=== PATIENT | male | born 1960 | race Caucasian/White ===

== ENCOUNTER 2017-01-25 18:17 | Inpatient (IN) | payer OTHER ==
[~2017-01-25] VITALS: Ht 185.4 cm; Wt 113.9 kg
[2017-01-25] VITALS: BP 108/62
[~2017-01-25 18:17] MED LIST: AMLO10TA2 PO; BENA40TA2 PO; FLUV50TA10 PO; GABA-534 PO; LORA1TAB82 PO; METF500T4 PO; PALI234D IM
--- NOTE | 2017-01-25 18:25 | NUR ---
PT BIB SELF, C/O HAVING ANXIETY ATTACK. STATES HE USUALLY TAKES ATIVAN, BUT HAS NOT TODAY. PATIENT REMAINS A/OX 4, BREATHING EVEN AND UNLABORED ON ROOM AIR. NO SOB. VITALS STABLE. SAFETY AND COMFORT MEASURES IN PLACE, AWAITING MD ORDERS.
--- NOTE | 2017-01-25 18:30 | NUR ---
PT CAME IN FOR ANXIETY ATTACK TODAY, TAKES ATIVAN BUT STATES DID NOT TAKE IT. NAD NOTED. VSS. SEEN BY MD FOR EVAL. SAFETY AND COMFORT MEASURES PROVIDED. WILL MONITOR.
[2017-01-25] MEDS ORDERED: LORAZEPAM 1 MG TABLET ONE (18:39)
--- NOTE | 2017-01-25 18:48 | NUR ---
ATIVAN 1MG PO ADMINSITERED.
[2017-01-25 18:52] LABS: BASOPHILS # (AUTO) 0.3 /CMM (0.0-0.2); BASOPHILS % (AUTO) 2.7 % (0.0-2.0); EOSINOPHILS # (AUTO) 0.1 /CMM (0.0-0.7); EOSINOPHILS % (AUTO) 1.2 % (0.0-6.0); HEMATOCRIT 38 % (39-51); HEMOGLOBIN 12.9 g/dL (13.5-17.5); LYMPHOCYTES # (AUTO) 1.7 /CMM (0.8-4.8); LYMPHOCYTES % (AUTO) 16.6 % (20.0-44.0); MEAN CORPUSCULAR HEMOGLOBIN 28 PG (26.0-33.0); MEAN CORPUSCULAR HGB CONC 34 g/dl (31.0-36.0); MEAN CORPUSCULAR VOLUME 81 fL (80-96); MONOCYTES # (AUTO) 0.7 /CMM (0.1-1.30); MONOCYTES % (AUTO) 6.3 % (2.0-12.0); NEUTROPHILS # (AUTO) 7.6 /CMM (1.8-8.9); NEUTROPHILS % (AUTO) 73.2 % (43.0-81.0); PLATELET COUNT (AUTO) 336 /CMM (150-450); RDW COEFFICIENT OF VARIATION 12.1 (11.5-15.0); RED BLOOD CELL COUNT(AUTO) 4.69 MIL/uL (4.5-6.0); WHITE BLOOD COUNT (AUTO) 10.4 K/uL (4.3-11.0)
[2017-01-25 18:59] LABS: CALCIUM, SERUM 8.9 mg/dL (8.5-10.1); CREATININE 0.9 mg/dL (0.6-1.3)
[2017-01-25] MEDS ORDERED: LORAZEPAM 1 MG TABLET PO ONE (19:00)
[2017-01-25 19:03] LABS: POTASSIUM 3.4 mmol/L (3.5-5.1)
--- NOTE | 2017-01-25 19:27 | NUR ---
NEW IV STARTED LAC, 18 GAUGE.
--- NOTE | 2017-01-25 19:31 | NUR ---
Assumed care of pt. pt sitting up in bed, talking on phone, speaking full & complete sentences w/ no acute distress noted. Awaiting admission.
--- NOTE | 2017-01-25 19:37 | NUR ---
DR.RUTHERFORD TEODORO DYNO TECHNICIAN
--- NOTE | 2017-01-25 19:40 | NUR ---
CALLED NURSING SUP. FOR TELE BED
--- NOTE | 2017-01-25 20:29 | NUR ---
Report given to RUEL Abad for pt admission to [facility] rm [id number].
[2017-01-25] MEDS ORDERED: ZOLP10TA2 PO (20:30)
[2017-01-25] MEDS ORDERED: CARI350T PO (20:30)
[2017-01-25 21:00] VITALS: BP_SYST 119; BP_SYST 122; BP_DIAS 69; BP_DIAS 74
[2017-01-25] MEDS ORDERED: DEXTROSE 50%-WATER 50 ML DISP.SYRIN IV PRN (21:00)
[2017-01-25] MEDS ORDERED: MAG HYDROX/AL HYDROX/SIMETH 30 ML UDC PO PRN (21:00)
[2017-01-25] MEDS ORDERED: ACETAMINOPHEN 325 MG TABLET PO PRN (21:00)
[2017-01-25] MEDS ORDERED: Z GUARD REMEDY 2 OZ OINT TP PRN (21:00)
[2017-01-25] MEDS ORDERED: *INSULIN REGULAR(HUMULIN R)HUM 100 UNIT/ML VIAL SQ PRN (21:00)
[2017-01-25] MEDS ORDERED: INSULIN REGULAR, HUMAN 100 UNIT/ML 3 ML VIAL SQ PRN (21:00)
[2017-01-25] MEDS ORDERED: MAGNESIUM HYDROXIDE 30 ML UDC PO PRN (21:00)
[2017-01-25] MEDS ORDERED: HYDROCODONE/APAP 5/325MG 1 EACH TABLET PO PRN (21:00)
[2017-01-25] MEDS ORDERED: ONDANSETRON HCL/PF 4 MG/2 ML VIAL IVP PRN (21:00)
--- NOTE | 2017-01-25 21:00 | NUR ---
MS RN NOTES RECEIVED PT FROM THE ER INSTABLE CONDITION. PT IS A/O X 4, VERBALLY RESPONSIVE. NO DISTRESS, NO SOB NOTED. RESPIRATION IS EVEN AND UNLABORED. IV SITE ON LAC INTACT AND PATENT, NO S/S OF INFILTRATION NOTED. NO S/S OF HYPO/ HYPERGLYCEMIA NOTED. PT DENIES ANY PAIN OR DISCOMFORT AT THIS TIME. ALL NEEDS ATTENDED AND MET. KEPT COMFORTABLE. BODY ASSESSMENT DONE. PT REFUSED BODY CHECK FROM WAIST DOWN, RISK AND BENEFITS EXPLAINED, PT STILL REFUSED X 3. CALL LIGHT WITHIN REACH. WILL CONTINUE TO MONITOR.
[2017-01-25] MEDS ORDERED: IV SET PRIMARY PUMP SET 1 EA INFUS.SET MC ONE (21:13)
[2017-01-25] MEDS: IV NS 0.9% 1,000 ML IV PRN (21:17)
--- NOTE | 2017-01-25 22:20 | NUR ---
PT IS REQUESTING FOR HIS SOMA, AMBIEN AND ATIVAN MEDICATION , PLACED A CALL TO DR. LOBO AND DISCUSSED RE: PT'S CONCERN, WITH NEW ORDER NOTED AND CARRIED OUT.
[2017-01-25] MEDS ORDERED: CARISOPRODOL 350 MG TABLET ONE (22:49)
[2017-01-25] MEDS: ENOXAPARIN SODIUM 40 MG/0.4 ML DISP.SYRIN SQ SCH (22:55)
[2017-01-25] MEDS: BLOOD SUGAR DIAGNOSTIC 1 EACH STRIP VI SCH (22:59)
[2017-01-25] MEDS ORDERED: CARISOPRODOL 350 MG TABLET PO SCH (23:00)
[2017-01-25] MEDS ORDERED: CARISOPRODOL 350 MG TABLET PO ONE (23:00)
[2017-01-25] MEDS ORDERED: LORAZEPAM 1 MG TABLET PO PRN (23:00)
[2017-01-26] MEDS ORDERED: ZOLPIDEM TARTRATE 10 MG TABLET PO ONE
[2017-01-26] MEDS ORDERED: ZOLPIDEM TARTRATE 10 MG TABLET ONE (01:18)
[2017-01-26 04:00] VITALS: BP 115/63
[2017-01-26] MEDS: BLOOD SUGAR DIAGNOSTIC 1 EACH STRIP VI SCH ×4 (06:02→22:03)
[2017-01-26 06:36] LABS: BASOPHILS % (AUTO) 0.6 % (0.0-2.0); EOSINOPHILS # (AUTO) 0.2 /CMM (0.0-0.7); EOSINOPHILS % (AUTO) 2.6 % (0.0-6.0); HEMATOCRIT 37 % (39-51); HEMOGLOBIN 12.7 g/dL (13.5-17.5); LYMPHOCYTES # (AUTO) 1.3 /CMM (0.8-4.8); LYMPHOCYTES % (AUTO) 22.4 % (20.0-44.0); MEAN CORPUSCULAR HEMOGLOBIN 28 PG (26.0-33.0); MEAN CORPUSCULAR HGB CONC 35 g/dl (31.0-36.0); MEAN CORPUSCULAR VOLUME 81 fL (80-96); MONOCYTES # (AUTO) 0.5 /CMM (0.1-1.30); MONOCYTES % (AUTO) 8.3 % (2.0-12.0); NEUTROPHILS # (AUTO) 3.9 /CMM (1.8-8.9); NEUTROPHILS % (AUTO) 66.1 % (43.0-81.0); PLATELET COUNT (AUTO) 306 /CMM (150-450); RDW COEFFICIENT OF VARIATION 13.4 (11.5-15.0); RED BLOOD CELL COUNT(AUTO) 4.54 MIL/uL (4.5-6.0); WHITE BLOOD COUNT (AUTO) 5.9 K/uL (4.3-11.0)
[2017-01-26 06:59] LABS: CALCIUM, SERUM 8.7 mg/dL (8.5-10.1); CREATININE 0.8 mg/dL (0.6-1.3); MAGNESIUM 1.9 mg/dL (1.8-2.4); PHOSPHORUS 4.2 mg/dL (2.5-4.9)
--- NOTE | 2017-01-26 07:16 | NUR ---
MS RN NOTES PT IS RESTING AT THSI TIME, AROUSES EASILY, PT IS A/O X 4, VERBALLY RESPONSIVE. NO DISTRESS, NO SOB NOTED. RESPIRATION IS EVEN AND UNLABORED. IV SITE ON LAC INTACT AND PATENT, NO S/S OF INFILTRATION NOTED. NO S/S OF HYPO/ HYPERGLYCEMIA NOTED. PT DENIES ANY PAIN OR DISCOMFORT AT THIS TIME. ALL NEEDS ATTENDED AND MET. KEPT COMFORTABLE. PT IS AMBULATORY AND CONTINENT OF URINE AND BM. CALL LIGHT WITHIN REACH. WILL ENDORSE TO NEXT SHIFT FOR RICKY.
--- NOTE | 2017-01-26 07:53 | NUR ---
RN MS NOTES PATIENT IN BED ALERT AND ORIENTED, NO COMPLAIN OF PAIN OR DISCOMFORT NOTED, NO DISTRESS NOTEDA, IVF INFUSING AND TOLERATING WELL, ALL NEEDS ATTENDED AND MET, SAFETY MEASURES IN PLACED, CALL LIGHT WITHIN REACH, WILL CONTINUE TO MONITOR.
[2017-01-26 08:00] VITALS: BP 132/76
[2017-01-26] MEDS: LORAZEPAM 1 MG TABLET PO SCH ×3 (08:21→17:46)
[2017-01-26] MEDS: PANTOPRAZOLE 40 MG TABLET.DR PO SCH (08:21)
[2017-01-26] MEDS: BENAZEPRIL HCL 20 MG TABLET PO SCH (08:22)
[2017-01-26] MEDS: GABAPENTIN 300 MG CAPSULE PO SCH ×3 (08:22→17:46)
[2017-01-26] MEDS: AMLODIPINE BESYLATE 10 MG TABLET PO SCH (08:22)
--- NOTE | 2017-01-26 10:56 | NUR ---
OFFSET ASSISTANT PRESS OPERATOR NOTES PER DR. JALEN YAP TO DC TELEMETRY.
[2017-01-26] MEDS: IV NS 0.9% 1,000 ML IV PRN (11:35)
--- NOTE | 2017-01-26 13:30 | NUR ---
RN MS NOTES INFORMED DR. SCHAEFER PATIENT REFUSED INSULIN WITH BS OF 196, PATIENT IS REQUESTING FOR METFORMIN AND JANUVIA, RECEIVED ORDER FROM DR. SCHAEFER TO GIVE JANUVIA, ORDER NOTED ANDC ARRIED OUT.
[2017-01-26] MEDS ORDERED: LINAGLIPTIN 5 MG TABLET PO SCH ×2 (14:00→18:00)
[2017-01-26] MEDS ORDERED: SITAGLIPTIN PHOSPHATE 50 MG TABLET PO SCH (14:00)
--- NOTE | 2017-01-26 15:24 | NUR ---
RN MS NOTES PATIENT OFFERED, TRADJENTA AN ALTERNATIVE FOR JANUVIA, DISCUSSED SIDE EFFECTS, PATIENT REQUESTED FOR A BLOOD SUGAR CHECK, BS SHOWS 128, PATIENT REFUSED TRADJENTA AND REQUESTED TO TAKE FOR DINNER, DEPENDING ON BLOOD SUGAR, EXPLAINED RISKS AND BENEFITS, STILL REFUSED, ALL NEEDS ATTENDED, CALL LIGHT WITHIN REACH, WILL CONTINUE TO MONITOR,
[2017-01-26 16:00] VITALS: BP 116/62
[2017-01-26] MEDS ORDERED: ZOLPIDEM TARTRATE 10 MG TABLET PO SCH (18:00)
[2017-01-26] MEDS ORDERED: CARISOPRODOL 350 MG TABLET PO SCH (18:00)
--- NOTE | 2017-01-26 19:05 | NUR ---
RN MS NOTES PATIENT IN BED, ALERT AND ORIENTED, NO SOB/ DISTRESS NOTED, NO SIGNIFICANT CHANGE THIS SHIFT, STILL CONTINUES ON IV FLUIDS FOR HYDRATION AND TOLERATING WELL, CALL LIGHT WITHIN REACH, SAFETY MEASURES IN PLACED, WILL ENDORSE TO CARBON FURNACE OPERATOR HELPER FOR RICKY.
--- NOTE | 2017-01-26 19:20 | NUR ---
MS RN NOTES RECEIVED PT IN BED, AWAKE, A/O X4 . VERBALLY RESPONSIVE. NO DISTRESS, NO SOB NOTED. RESPIRATION IS EVEN AND UNLABORED. IV SITE ON LEFT AC INTACT AND PATENT, IVF INFUSING WELL. DENIES ANY PAIN OR DISCOMFORT AT THIS TIME. PT IS AMBULATORY. CONTINENT OF BOWEL AND URINE. ALL NEEDS ATTENDED AND MET. KEPT COMFORTABLE. CALL LIGHT WITHIN REACH. WILL CONTINUE TO MONITOR.
[2017-01-26 20:11] VITALS: BP 128/75
[2017-01-26 22:00] VITALS: BP 128/75
[2017-01-26] MEDS: ENOXAPARIN SODIUM 40 MG/0.4 ML DISP.SYRIN SQ SCH (22:02)
[2017-01-27] MEDS: IV NS 0.9% 1,000 ML IV PRN (02:35)
[2017-01-27] MEDS: BLOOD SUGAR DIAGNOSTIC 1 EACH STRIP VI SCH ×2 (06:07→12:00)
--- NOTE | 2017-01-27 06:33 | NUR ---
MS RN NOTES PT IN BED, AWAKE, A/O X4 . VERBALLY RESPONSIVE. WATCHING TV AT THIS TIME. NO DISTRESS, NO SOB NOTED. RESPIRATION IS EVEN AND UNLABORED. IV SITE ON LEFT AC INTACT AND PATENT, IVF INFUSING WELL. DENIES ANY PAIN OR DISCOMFORT AT THIS TIME. PT IS AMBULATORY. CONTINENT OF BOWEL AND BLADDER. NO DYSURIA NOTED. ALL NEEDS ATTENDED AND MET. KEPT COMFORTABLE. CALL LIGHT WITHIN REACH. WILL ENDORSE TO NEXT SHIFT FOR RICKY.
[2017-01-27 07:43] LABS: CALCIUM, SERUM 8.8 mg/dL (8.5-10.1); CREATININE 0.8 mg/dL (0.6-1.3); MAGNESIUM 2.2 mg/dL (1.8-2.4); POTASSIUM 3.9 mmol/L (3.5-5.1)
[2017-01-27 08:00] VITALS: BP 142/82
--- NOTE | 2017-01-27 08:00 | NUR ---
m/s manager audit: initial assessment received pt in bed awake, a/ox4, ambulatory. pt wants to go home today. no c/o pain or any discomfort. awaiting for pmd to make rounds. instructed to call for assistance. will monitor.
[2017-01-27 08:39] VITALS: BP 142/82
[2017-01-27] MEDS: LORAZEPAM 1 MG TABLET PO SCH (08:39)
[2017-01-27] MEDS: GABAPENTIN 300 MG CAPSULE PO SCH (08:39)
[2017-01-27] MEDS: BENAZEPRIL HCL 20 MG TABLET PO SCH (08:39)
[2017-01-27] MEDS: PANTOPRAZOLE 40 MG TABLET.DR PO SCH (08:39)
[2017-01-27] MEDS: AMLODIPINE BESYLATE 10 MG TABLET PO SCH (08:39)
--- NOTE | 2017-01-27 10:48 | NUR ---
m/s printed circuit boards stripper etcher: notes received order from dr. griffith to d'c pt home. order acknowledged. cn and pt made aware.
--- NOTE | 2017-01-27 10:52 | NUR ---
WOUND CARE CONSULT: PATIENT PRESENTS WITH RIGHT MIDDLE FINGER DRY SCAB PRESENT ON ADMISSION. OPEN TO AIR. PATIENT NOTED TO BE AMBULATORY AND CONTINENT. DEANA NOTED TO BE 22. DISCUSSED WITH NURSING STAFF. IN AGREEMENT WITH PLAN OF CARE. Addendum: 01/27/17 at 1054 by THEA HERRERA RN Amended: Links added.
--- NOTE | 2017-01-27 12:20 | NUR ---
m/brigid engle: notes dr. griffith spoke to pt and discharge instructions given and also instructed pt on discharge instructions and verbalized understanding. h/l removed with tip intact with no swelling, no redness, and no bleeding noted. Addendum: 01/27/17 at 1324 by EMELI SALCEDON pt refused photo to his right middle finger scab, stated, "no, they already taken on admission."
--- NOTE | 2017-01-27 12:25 | NUR ---
m/s chiller tender: discharged discharged home via taxi in stable condition with all d'c papers.
== END 2017-01-27 12:25 | disposition home or self-care (01) | DRG 424 ==
LOC: ER 18:19 → TELE 20:24 → MED 01-26 10:30
PROVIDERS: ADMIT Internal Medicine; ATTEND Internal Medicine
DX: E22.2 Syndrome of inappropriate secretion of antidiuretic hormone (principal); E44.1 Mild protein-calorie malnutrition; I10 Essential (primary) hypertension; E11.9 Type 2 diabetes mellitus without complications; F20.0 Paranoid schizophrenia; Z79.84 Long term (current) use of oral hypoglycemic drugs; Z87.891 Personal history of nicotine dependence; E66.9 Obesity, unspecified; E78.5 Hyperlipidemia, unspecified; R53.1 Weakness; Z68.33 Body mass index [BMI] 33.0-33.9, adult; F41.9 Anxiety disorder, unspecified
CPT/HCPCS: 36415; 71010-TC; 80048-TC; 82962-TC; 83735-TC; 84100-TC; 85025-TC; 87081-TC; A4606; J1650; J1815; J7030; Z7610

== ENCOUNTER 2017-12-15 12:29 | Emergency (ER) | payer OTHER ==
[~2017-12-15] VITALS: Ht 182.9 cm; Wt 74.8 kg
[~2017-12-15 12:29] MED LIST changes: -AMLO10TA2 PO; +AMLO10TA6 PO; -BENA40TA2 PO; +BENA40TA8 PO; +CARI350T PO; +LORA-259 PO; -LORA1TAB82 PO; +METF-440 PO; -METF500T4 PO; +ZOLP10TA2 PO
--- NOTE | 2017-12-15 12:35 | NUR ---
PT BIB [facility] WITH A C/O UNWITTNESSED SYNCOPAL EPISODE. PT HAS A SM LAC AND BUMP ABOVE THE RT EYE. PT IS AA&O X2. PT APPEARS ALTERED.
--- NOTE | 2017-12-15 12:35 | NUR ---
PT DOES NOT REMEMBER HOW HE FELL.
--- NOTE | 2017-12-15 12:46 | NUR ---
DR. BARRAGAN D/C'D SALINE LOCK ORDER. TAKE OFF WORKER IS AT THE BEDSIDE.
--- NOTE | 2017-12-15 12:46 | NUR ---
DR. BARRAGAN IS AT THE BEDSIDE EVALUATING THE PT.
[2017-12-15 13:07] LABS: BASOPHILS # (AUTO) 0.1 /CMM (0.0-0.2); BASOPHILS % (AUTO) 1.4 % (0.0-2.0); EOSINOPHILS % (AUTO) 0.7 % (0.0-6.0); HEMATOCRIT 40 % (39-51); HEMOGLOBIN 13.9 g/dL (13.5-17.5); LYMPHOCYTES % (AUTO) 11.5 % (20.0-44.0); MEAN CORPUSCULAR HGB CONC 34 g/dl (31.0-36.0); MEAN CORPUSCULAR VOLUME 81 fL (80-96); MONOCYTES # (AUTO) 0.5 /CMM (0.1-1.30); MONOCYTES % (AUTO) 5.3 % (2.0-12.0); NEUTROPHILS # (AUTO) 7.2 /CMM (1.8-8.9); NEUTROPHILS % (AUTO) 81.1 % (43.0-81.0); PLATELET COUNT (AUTO) 312 /CMM (150-450); RDW COEFFICIENT OF VARIATION 12.3 (11.5-15.0); RED BLOOD CELL COUNT(AUTO) 4.99 MIL/uL (4.5-6.0); WHITE BLOOD COUNT (AUTO) 8.9 K/uL (4.3-11.0)
--- NOTE | 2017-12-15 13:07 | NUR ---
XRAY DONE AT THE BEDSIDE.
[2017-12-15 13:16] LABS: CALCIUM, SERUM 9.2 mg/dL (8.5-10.1); CARBON DIOXIDE 28 mmol/L (21-32); CHLORIDE 98 mmol/L (98-107); GLUCOSE 143 mg/dL (74-106); POTASSIUM 4.5 mmol/L (3.5-5.1); SODIUM SERUM 132 mmol/L (136-145); UREA NITROGEN, BLOOD 11 mg/dL (7-18)
--- NOTE | 2017-12-15 13:19 | NUR ---
PT LEFT FOR CT VIA GURNEY.
[2017-12-15 13:20] LABS: INR 0.93 (0.85-1.15)
[2017-12-15 13:21] LABS: ALANINE AMINOTRANSFERASE 27 U/L (12-78); ALBUMIN 4.2 g/dL (3.4-5.0); ALKALINE PHOSPHATASE 67 U/L (46-116); ASPARTATE AMINOTRANSFERASE 18 U/L (15-37); BILIRUBIN,DIRECT 0.1 mg/dL (0.0-0.2); BILIRUBIN,TOTAL 0.8 mg/dL (0.2-1.0); TOTAL PROTEIN, SERUM 7.6 g/dL (6.4-8.2)
[2017-12-15 13:26] LABS: TROPONIN I < 0.017 ng/mL (0.00-0.056)
--- NOTE | 2017-12-15 13:29 | NUR ---
PT RETURNED FROM CT VIA [facility].
--- NOTE | 2017-12-15 13:55 | NUR ---
Patient discharged to home in stable condition. Written and verbal after care instructions given. Patient verbalizes understanding of instruction.
[2017-12-15 14:28] VITALS: BP 132/83
== END 2017-12-15 13:55 | disposition home or self-care (01) ==
LOC: ER 12:32
DX: S01.81XA Laceration without foreign body of other part of head, initial encounter (principal); G93.40 Encephalopathy, unspecified; R55 Syncope and collapse; E11.9 Type 2 diabetes mellitus without complications; F20.0 Paranoid schizophrenia; I10 Essential (primary) hypertension; W01.0XXA Fall on same level from slipping, tripping and stumbling without subsequent striking against object, initial encounter; Y93.01 Activity, walking, marching and hiking; Y92.89 Other specified places as the place of occurrence of the external cause; Y99.8 Other external cause status
CPT/HCPCS: 12011; 36415; 70450; 71045; 80048; 80076; 82962; 84484; 85025; 85730; 93005; 99285; A4606; Z7610

== ENCOUNTER 2018-02-05 11:17 | Emergency (ER) | payer OTHER ==
[~2018-02-05] VITALS: Ht 182.9 cm; Wt 111.1 kg
[~2018-02-05 11:17] MED LIST changes: +AMLO10TA2 PO; -AMLO10TA6 PO; +BENA40TA2 PO; -BENA40TA8 PO; -METF-440 PO; +METF500T6 PO
--- NOTE | 2018-02-05 11:25 | NUR ---
PT AMBULATORY TO ER BED 13. HERE FOR FOUL SMELLING URINE AND OCCATIONAL PAIN. ALSO C/O ANXIETY SINCE LAST NIGHT. VSS. AWAITING MD MATHIAS.
--- NOTE | 2018-02-05 11:32 | NUR ---
DR OBRIEN AT BEDSIDE FOR EVAL.
[2018-02-05] MEDS ORDERED: LORAZEPAM 1 MG TABLET ONE (11:40)
[2018-02-05 11:46] LABS: LYMPHOCYTES # (AUTO) 0.9 /CMM (0.8-4.8); MEAN CORPUSCULAR HEMOGLOBIN 29 PG (26.0-33.0); MEAN CORPUSCULAR HGB CONC 36 g/dl (31.0-36.0); MONOCYTES # (AUTO) 0.5 /CMM (0.1-1.30); NEUTROPHILS % (AUTO) 77.8 % (43.0-81.0)
[2018-02-05 11:47] LABS: BASOPHILS % (AUTO) 0.3 % (0.0-2.0); EOSINOPHILS % (AUTO) 1.1 % (0.0-6.0); HEMATOCRIT 36 % (39-51); HEMOGLOBIN 12.8 g/dL (13.5-17.5); LYMPHOCYTES % (AUTO) 13.2 % (20.0-44.0); MEAN CORPUSCULAR VOLUME 82 fL (80-96); MONOCYTES % (AUTO) 7.6 % (2.0-12.0); PLATELET COUNT (AUTO) 255 /CMM (150-450); RDW COEFFICIENT OF VARIATION 11.9 (11.5-15.0); RED BLOOD CELL COUNT(AUTO) 4.43 MIL/uL (4.5-6.0); WHITE BLOOD COUNT (AUTO) 6.5 K/uL (4.3-11.0)
[2018-02-05 11:48] LABS: APPEARANCE,URINE Clear (CLEAR); BILIRUBIN,URINE Negative (NEGATIVE); BLOOD, URINE Trace-intact Ery/uL (NEGATIVE); COLOR,URINE Light yellow (YELLOW); KETONES,URINE Negative (NEGATIVE); LEUKOCYTE ESTERASE ,URINE Negative (NEGATIVE); NITRITE, URINE Negative (NEGATIVE); PROTEIN,URINE Negative (NEGATIVE); UGLUCOSE Negative (NEGATIVE); UROBILINOGEN,URINE 0.2 EU/dL (0.2)
[2018-02-05 11:55] LABS: BACTERIA,URINE None seen /HPF (None Seen); SQUAMOUS EPITHELIAL CELL,UR Few /HPF (None Seen); WBC,URINE 0-2 /HPF (0-3)
[2018-02-05 11:57] LABS: CALCIUM, SERUM 8.9 mg/dL (8.5-10.1); CREATININE 0.8 mg/dL (0.6-1.3); POTASSIUM 3.8 mmol/L (3.5-5.1)
[2018-02-05] MEDS ORDERED: LORAZEPAM 0.5 MG TABLET PO ONE (12:00)
[2018-02-05 12:10] VITALS: BP 143/75
--- NOTE | 2018-02-05 12:10 | NUR ---
PT. VERBALIZED UNDERSTANDING OF AFTERCARE INSTRUCTIONS.Patient discharged to home in stable condition. Written and verbal after care instructions given. Patient verbalizes understanding of instruction.
== END 2018-02-05 12:11 | disposition home or self-care (01) ==
LOC: ER 11:18
DX: E87.79 Other fluid overload (principal); R63.1 Polydipsia; F41.8 Other specified anxiety disorders; I10 Essential (primary) hypertension; E11.9 Type 2 diabetes mellitus without complications; F20.0 Paranoid schizophrenia
CPT/HCPCS: 36415; 80048; 81001; 85025; 99284; A4606; Z7610; 81000-TC

== ENCOUNTER 2019-07-22 11:22 | Emergency (ER) | payer OTHER ==
[~2019-07-22] VITALS: Ht 172.7 cm; Wt 109.3 kg
[~2019-07-22 11:22] MED LIST changes: -AMLO10TA2 PO; +AMLO10TA7 PO; -BENA40TA2 PO; +BENA40TA8 PO; +METF-440 PO; -METF500T6 PO
--- NOTE | 2019-07-22 11:30 | NUR ---
frankieSylvia, from the grocery store, took 6 tabs of ambien 10 mg, denies SI/HI, pt to bed 11, pt on monitor, vss, nad noted, pending md garcia
[2019-07-22] MEDS ORDERED: IV NS 0.9% 1,000 ML BAG IV ONE (12:00)
[2019-07-22 12:05] LABS: BASOPHILS % (AUTO) 0.4 % (0.0-2.0); EOSINOPHILS % (AUTO) 0.4 % (0.0-6.0); HEMATOCRIT 43 % (39-51); HEMOGLOBIN 14.4 g/dL (13.5-17.5); LYMPHOCYTES # (AUTO) 1.5 /CMM (0.8-4.8); LYMPHOCYTES % (AUTO) 17.6 % (20.0-44.0); MEAN CORPUSCULAR HGB CONC 34 g/dl (31.0-36.0); MEAN CORPUSCULAR VOLUME 85 fL (80-96); MONOCYTES # (AUTO) 0.6 /CMM (0.1-1.30); MONOCYTES % (AUTO) 6.7 % (2.0-12.0); NEUTROPHILS # (AUTO) 6.2 /CMM (1.8-8.9); NEUTROPHILS % (AUTO) 74.9 % (43.0-81.0); PLATELET COUNT (AUTO) 289 /CMM (150-450); RED BLOOD CELL COUNT(AUTO) 5.02 MIL/uL (4.5-6.0); WHITE BLOOD COUNT (AUTO) 8.3 K/uL (4.3-11.0)
[2019-07-22 12:09] LABS: APPEARANCE,URINE Clear (CLEAR); BILIRUBIN,URINE Negative (NEGATIVE); BLOOD, URINE Trace-intact Ery/uL (NEGATIVE); COLOR,URINE Yellow (YELLOW); KETONES,URINE Negative (NEGATIVE); LEUKOCYTE ESTERASE ,URINE Negative (NEGATIVE); NITRITE, URINE Negative (NEGATIVE); PROTEIN,URINE Negative (NEGATIVE); UGLUCOSE Negative (NEGATIVE); UROBILINOGEN,URINE 0.2 EU/dL (0.2)
[2019-07-22 12:19] LABS: CREATININE 0.8 mg/dL (0.6-1.3); POTASSIUM 3.9 mmol/L (3.5-5.1)
[2019-07-22 12:24] LABS: ALBUMIN 3.9 g/dL (3.4-5.0); BACTERIA,URINE None seen /HPF (None Seen); BILIRUBIN,DIRECT 0.2 mg/dL (0.0-0.2); BILIRUBIN,TOTAL 0.8 mg/dL (0.2-1.0); RBC,URINE 0-2 /HPF (0-2); SQUAMOUS EPITHELIAL CELL,UR Few /HPF (None Seen); TOTAL PROTEIN, SERUM 7.2 g/dL (6.4-8.2); WBC,URINE 0-2 /HPF (0-3)
[2019-07-22 12:26] LABS: SALICYLATE 0.4 mg/dL (2.8-20.0)
--- NOTE | 2019-07-22 13:58 | NUR ---
CALLED INDEPENDENT CONTRACTOR CECILIA FOR EVAL
[2019-07-22] MEDS ORDERED: OLANZAPINE 10 MG VIAL IM ONE (14:00)
--- NOTE | 2019-07-22 14:04 | NUR ---
CECILIA MACHO OVER 1 HOUR
--- NOTE | 2019-07-22 14:31 | NUR ---
called salma for update; she will be unable to pick him up.
--- NOTE | 2019-07-22 15:33 | NUR ---
CECILIA ETA 20 MINUTES
--- NOTE | 2019-07-22 16:48 | NUR ---
report given to rashida horvath hilton
--- NOTE | 2019-07-22 17:21 | NUR ---
Patient discharged to home in stable condition. Written and verbal after care instructions given. Patient verbalizes understanding of instruction. AMBULATORY STEADY GAIT. DISCHARGED TO [facility].
[2019-07-22 17:24] VITALS: BP 161/75
== END 2019-07-22 17:24 | disposition home or self-care (01) ==
LOC: ER 11:24
DX: T42.6X1A Poisoning by other antiepileptic and sedative-hypnotic drugs, accidental (unintentional), initial encounter (principal); I10 Essential (primary) hypertension; E11.9 Type 2 diabetes mellitus without complications; F41.9 Anxiety disorder, unspecified; F20.0 Paranoid schizophrenia; Z79.899 Other long term (current) drug therapy; Z79.84 Long term (current) use of oral hypoglycemic drugs; Y92.89 Other specified places as the place of occurrence of the external cause
CPT/HCPCS: 36415; 80048; 80076; 80305; 80307; 80329; 81001; 85025; 93005; 99284; G0480; J7030; 81000-TC

== ENCOUNTER 2019-09-30 20:22 | Emergency (ER) | payer OTHER ==
[~2019-09-30] VITALS: Ht 185.4 cm; Wt 65.3 kg
--- NOTE | 2019-09-30 20:30 | NUR ---
PT BIB [facility] WITH A C/O ETOH. PT BECAME TIRED OF WALKING AND LAID ON THE GROUND. PT CALLED 911. PT APPEARS TO BE INTOXICATED AND IS SAYING: "I WANT TO ". PT DOES NOT WANT TO KILL HIMSELF AND DOES NOT HAVE A PLAN. SITTER IS AT THE BEDSIDE.
[2019-09-30 21:37] LABS: BASOPHILS # (AUTO) 0.1 /CMM (0.0-0.2); BASOPHILS % (AUTO) 0.6 % (0.0-2.0); EOSINOPHILS % (AUTO) 0.7 % (0.0-6.0); HEMATOCRIT 44 % (39-51); HEMOGLOBIN 14.9 g/dL (13.5-17.5); LYMPHOCYTES # (AUTO) 1.3 /CMM (0.8-4.8); LYMPHOCYTES % (AUTO) 14.1 % (20.0-44.0); MEAN CORPUSCULAR HGB CONC 34 g/dl (31.0-36.0); MEAN CORPUSCULAR VOLUME 86 fL (80-96); MONOCYTES # (AUTO) 0.4 /CMM (0.1-1.30); MONOCYTES % (AUTO) 4.6 % (2.0-12.0); NEUTROPHILS # (AUTO) 7.4 /CMM (1.8-8.9); PLATELET COUNT (AUTO) 253 /CMM (150-450); RED BLOOD CELL COUNT(AUTO) 5.13 MIL/uL (4.5-6.0); WHITE BLOOD COUNT (AUTO) 9.3 K/uL (4.3-11.0)
--- NOTE | 2019-09-30 21:48 | NUR ---
PT TRIED TO GIVE A URINE SAMPLE, BUT DID NOT HAVE TO URINATE AT THIS TIME.
[2019-09-30 21:53] LABS: CALCIUM, SERUM 8.7 mg/dL (8.5-10.1); CARBON DIOXIDE 20 mmol/L (21-32); CHLORIDE 98 mmol/L (98-107); GLUCOSE 135 mg/dL (74-106); POTASSIUM 3.6 mmol/L (3.5-5.1); SODIUM SERUM 135 mmol/L (136-145); UREA NITROGEN, BLOOD 8 mg/dL (7-18)
[2019-09-30 21:59] LABS: ALANINE AMINOTRANSFERASE 16 U/L (12-78); ALCOHOL, BLOOD 241 mg/dL (0-0); ALKALINE PHOSPHATASE 95 U/L (46-116); ASPARTATE AMINOTRANSFERASE 15 U/L (15-37); BILIRUBIN,DIRECT 0.1 mg/dL (0.0-0.2); BILIRUBIN,TOTAL 0.5 mg/dL (0.2-1.0); TOTAL PROTEIN, SERUM 7.2 g/dL (6.4-8.2)
[2019-09-30 22:00] LABS: SALICYLATE < 2.8 mg/dL (2.8-20.0)
--- NOTE | 2019-09-30 22:15 | NUR ---
PT APPEARS TO BE RESTING COMFORTABLY WITH NO S/S OF PAIN OR DISTRESS.
--- NOTE | 2019-10-01 00:39 | NUR ---
PT APPEARS TO BE RESTING COMFORTABLY. NO S/S OF PAIN OR DISTRESS. PT STATED THAT HE DOES NOT WANT TO KILL HIMSELF OR ANYONE ELSE, BUT HE WISHES GOD WOULD END THINGS FOR HIM.
--- NOTE | 2019-10-01 00:42 | NUR ---
PT IS STILL NOT ABLE TO GIVE A URINE SAMPLE AT THIS TIME.
--- NOTE | 2019-10-01 01:46 | NUR ---
PT APPEARS TO BE SLEEPING SOUNDLY WITH NO S/S OF PAIN OR DISTRESS. VSS.
--- NOTE | 2019-10-01 02:45 | NUR ---
PT IS SLEEPING SOUNDLY WITH NO S/S OF PAIN OR DISTRESS. PT IS ON THE MONITOR AND CONTINUOUS PULSE OX.
--- NOTE | 2019-10-01 03:11 | NUR ---
REPORT GIVEN TO RUEL LARIOS/COOPER FOR RICKY.
--- NOTE | 2019-10-01 05:31 | NUR ---
Patient discharged to home in stable condition. Written and verbal after care instructions given. Patient verbalizes understanding of instruction. Pt denies being homeless. Pt ambulatory with steady gait, VSS.
[2019-10-01 05:32] VITALS: BP 118/74
== END 2019-10-01 05:33 | disposition home or self-care (01) ==
LOC: ER 20:22
DX: F10.129 Alcohol abuse with intoxication, unspecified (principal); R45.851 Suicidal ideations; I10 Essential (primary) hypertension; E11.9 Type 2 diabetes mellitus without complications; F20.0 Paranoid schizophrenia; F41.9 Anxiety disorder, unspecified; Y90.8 Blood alcohol level of 240 mg/100 ml or more; Z79.899 Other long term (current) drug therapy
CPT/HCPCS: 36415; 80048; 80076; 80307; 80329; 85025; 99283; G0480

== ENCOUNTER 2021-12-25 14:53 | Emergency (ER) | payer OTHER ==
[~2021-12-25] VITALS: Ht 182.9 cm; Wt 93.4 kg
[~2021-12-25 14:53] MED LIST changes: +AMLO-213 PO; -AMLO10TA7 PO
--- NOTE | 2021-12-25 15:05 | NUR ---
PT [id number] C/O BACK PAIN S/P FALL -KO. +ETOH. PT AAOX3, VSS. RR EVEN & UNLABORED. AWAITING EVAL BY ERMD. WILL CONT TO MONITOR.
[2021-12-25 17:00] VITALS: BP 100/60
--- NOTE | 2021-12-25 17:00 | NUR ---
Sleeping soundly Respirations even and unlabored in NO obvious distress
--- NOTE | 2021-12-25 18:24 | NUR ---
Pt got up ambulated - to the bathroom and eloped. Unable to convince pt to stay states "im leaving" Gait even and Steady Dr Shepherd notified
== END 2021-12-25 18:39 | disposition home or self-care (01) ==
LOC: ER 14:59
DX: S21.209A Unspecified open wound of unspecified back wall of thorax without penetration into thoracic cavity, initial encounter (principal); F10.129 Alcohol abuse with intoxication, unspecified; I10 Essential (primary) hypertension; E11.9 Type 2 diabetes mellitus without complications; F41.9 Anxiety disorder, unspecified; F20.0 Paranoid schizophrenia; Z79.899 Other long term (current) drug therapy; W22.8XXA Striking against or struck by other objects, initial encounter; Y93.89 Activity, other specified; Y92.89 Other specified places as the place of occurrence of the external cause; Y99.8 Other external cause status; Y90.9 Presence of alcohol in blood, level not specified
CPT/HCPCS: 70450-TC; 72125-TC; 72128-TC; 72131-TC

== ENCOUNTER 2021-12-26 16:09 | Emergency (ER) | payer OTHER ==
[~2021-12-26] VITALS: Ht 180.3 cm; Wt 99.8 kg
[2021-12-26] MEDS ORDERED: IV NS 0.9% 1,000 ML BAG IV ONE (16:30)
--- NOTE | 2021-12-26 16:30 | NUR ---
BIBRA60 + ETOH. PT WAS SEEN HERE YEST FOR SAME REASON. PLACED ON BED, DROWSY-AWAKE RESPONDING TO VERBAL STIMULI. SEEN AND EXAMINED BY
--- NOTE | 2021-12-26 16:35 | NUR ---
BLOOD DRAWN AND SENT TO LAB
[2021-12-26 16:44] LABS: BASOPHILS # (AUTO) 0.1 K/uL (0.0-0.2); BASOPHILS % (AUTO) 0.6 % (0.0-2.0); EOSINOPHILS % (AUTO) 0.7 % (0.0-6.0); HEMATOCRIT 44 % (39-51); HEMOGLOBIN 15.2 g/dL (13.5-17.5); LYMPHOCYTES # (AUTO) 1.8 K/uL (0.8-4.8); LYMPHOCYTES % (AUTO) 21.2 % (20.0-44.0); MEAN CORPUSCULAR HGB CONC 35 g/dl (31.0-36.0); MEAN CORPUSCULAR VOLUME 84 fL (80-96); MONOCYTES # (AUTO) 0.7 K/uL (0.1-1.30); MONOCYTES % (AUTO) 7.9 % (2.0-12.0); NEUTROPHILS # (AUTO) 5.8 K/uL (1.8-8.9); NEUTROPHILS % (AUTO) 69.6 % (43.0-81.0); PLATELET COUNT (AUTO) 211 K/uL (150-450); RED BLOOD CELL COUNT(AUTO) 5.16 MIL/uL (4.5-6.0); WHITE BLOOD COUNT (AUTO) 8.4 K/uL (4.3-11.0)
--- NOTE | 2021-12-26 16:45 | NUR ---
X-RAY TECH AT BED SIDE
[2021-12-26 17:43] LABS: ALBUMIN 3.6 g/dL (3.4-5.0); BILIRUBIN,DIRECT 0.4 mg/dL (0.0-0.2); BILIRUBIN,TOTAL 1.3 mg/dL (0.2-1.0); CALCIUM, SERUM 8.4 mg/dL (8.5-10.1); CREATININE 0.9 mg/dL (0.6-1.3); POTASSIUM 3.2 mmol/L (3.5-5.1); TOTAL PROTEIN, SERUM 6.9 g/dL (6.4-8.2)
--- NOTE | 2021-12-26 18:45 | NUR ---
[facility]
--- NOTE | 2021-12-26 20:37 | NUR ---
IV removed. Catheter intact and site benign. Pressure and 4x4 applied to site. No bleeding noted.Patient discharged to home in stable condition. Written and verbal after care instructions given. Patient verbalizes understanding of instruction.
[2021-12-26 20:49] VITALS: BP 141/77
== END 2021-12-26 20:45 | disposition home or self-care (01) ==
LOC: ER 16:14
DX: M25.561 Pain in right knee (principal); E87.1 Hypo-osmolality and hyponatremia; F10.129 Alcohol abuse with intoxication, unspecified; F41.9 Anxiety disorder, unspecified; I10 Essential (primary) hypertension; E11.9 Type 2 diabetes mellitus without complications; F20.0 Paranoid schizophrenia; Z79.899 Other long term (current) drug therapy; Y90.9 Presence of alcohol in blood, level not specified
CPT/HCPCS: 36415; 70450; 73560; 80048; 80076; 83690; 85025; 85730; 96360; 99285; J7030

== ENCOUNTER 2022-01-01 20:35 | Emergency (ER) | payer OTHER ==
[~2022-01-01] VITALS: Ht 180.3 cm; Wt 99.8 kg
[2022-01-01 21:08] VITALS: BP 149/87
--- NOTE | 2022-01-01 21:23 | NUR ---
PT SEEN BY DR. BOYER
--- NOTE | 2022-01-01 21:44 | NUR ---
Patient discharged to home in stable condition. Written and verbal after care instructions given. Patient verbalizes understanding of instruction. Pt ambulatory with a steady gait
== END 2022-01-01 21:46 | disposition home or self-care (01) ==
LOC: ER 20:49
DX: T23.011A Burn of unspecified degree of right thumb (nail), initial encounter (principal); I10 Essential (primary) hypertension; E11.9 Type 2 diabetes mellitus without complications; F41.9 Anxiety disorder, unspecified; F20.0 Paranoid schizophrenia; Y92.89 Other specified places as the place of occurrence of the external cause

== ENCOUNTER 2022-02-09 12:52 | Emergency (ER) | payer OTHER ==
[~2022-02-09] VITALS: Ht 180.3 cm; Wt 99.3 kg
--- NOTE | 2022-02-09 12:58 | NUR ---
[address]IB [facility] [address], DIFFICULTY WALKING X 2 YRS, GETTING WORSE ADMIT TO DRINKING ALCOHOL TODAY. PT IS A&OX3. ATTACHED TO MONITOR, VITALS ARE WITHIN NORMAL LIMITS. AWAITING MD MATHIAS.
[2022-02-09 14:43] VITALS: BP 116/68
[2022-02-09] MEDS ORDERED: Thiamine 100 MG in IV D5W 50 ML IV SCH (15:00)
[2022-02-09] MEDS ORDERED: IV LR 1000 ML 1,000 ML IV ONE (15:00)
[2022-02-09 15:05] LABS: BASOPHILS % (AUTO) 0.7 % (0.0-2.0); EOSINOPHILS % (AUTO) 0.5 % (0.0-6.0); HEMATOCRIT 40 % (39-51); HEMOGLOBIN 13.9 g/dL (13.5-17.5); LYMPHOCYTES # (AUTO) 1.3 K/uL (0.8-4.8); LYMPHOCYTES % (AUTO) 19.3 % (20.0-44.0); MEAN CORPUSCULAR HGB CONC 34 g/dl (31.0-36.0); MEAN CORPUSCULAR VOLUME 87 fL (80-96); MONOCYTES # (AUTO) 0.3 K/uL (0.1-1.30); MONOCYTES % (AUTO) 5.2 % (2.0-12.0); NEUTROPHILS # (AUTO) 4.8 K/uL (1.8-8.9); NEUTROPHILS % (AUTO) 74.3 % (43.0-81.0); PLATELET COUNT (AUTO) 185 K/uL (150-450); RED BLOOD CELL COUNT(AUTO) 4.65 MIL/uL (4.5-6.0); WHITE BLOOD COUNT (AUTO) 6.5 K/uL (4.3-11.0)
[2022-02-09 15:19] LABS: CREATININE 0.7 mg/dL (0.6-1.3)
--- NOTE | 2022-02-09 16:31 | NUR ---
PATIENT PULLED OUT IV PERIPHERAL LINE. Pressure and 4x4 applied to site. No bleeding noted.
--- NOTE | 2022-02-09 16:38 | NUR ---
Patient eloped from facility. ER MD notified.
[2022-02-09 17:23] LABS: POTASSIUM 4.1 mmol/L (3.5-5.1)
--- NOTE | 2022-02-15 11:32 | NUR ---
ON 02/09/22 1,000ML OF LACTATED RINGER FLUID GIVEN TO PT ON L AC 20G. FLUID STARTED AT 1507 AND ENDED AT 1607. PT TOLERATED WELL.
--- NOTE | 2022-02-16 15:35 | NUR ---
on 02/27/22 pt recived thiamine 100mg in d5w 50ml at 102ml. drip was started at 1522 and ended at 1551. pt tolerated drip well.
== END 2022-02-09 16:38 | disposition left against medical advice (07) ==
LOC: ER 12:55
DX: R26.81 Unsteadiness on feet (principal); F10.129 Alcohol abuse with intoxication, unspecified; I10 Essential (primary) hypertension; E11.9 Type 2 diabetes mellitus without complications; F41.9 Anxiety disorder, unspecified; F20.0 Paranoid schizophrenia; Z60.2 Problems related to living alone; Z79.899 Other long term (current) drug therapy; Y90.6 Blood alcohol level of 120-199 mg/100 ml
CPT/HCPCS: 99284; 96365; 85025; 80048; 83735; 36415; 80320; J7060; J7120; J3411; G0480

== ENCOUNTER 2022-02-28 14:36 | Emergency (ER) | payer OTHER ==
[~2022-02-28] VITALS: Ht 182.9 cm; Wt 90.3 kg
--- NOTE | 2022-02-28 14:45 | NUR ---
[id number] C/O GENERALIZED WEAKNESS. PT IS A&OX3, DROWSY. ATTACHED TO MONITOR, NO RESP DISTRESS NOTED. AWAITING MD MATHIAS.
[2022-02-28 15:56] LABS: BASOPHILS % (AUTO) 0.4 % (0.0-2.0); HEMATOCRIT 39 % (39-51); HEMOGLOBIN 13.6 g/dL (13.5-17.5); LYMPHOCYTES # (AUTO) 1.6 K/uL (0.8-4.8); LYMPHOCYTES % (AUTO) 27.2 % (20.0-44.0); MEAN CORPUSCULAR HGB CONC 35 g/dl (31.0-36.0); MEAN CORPUSCULAR VOLUME 87 fL (80-96); MONOCYTES # (AUTO) 0.6 K/uL (0.1-1.30); MONOCYTES % (AUTO) 9.9 % (2.0-12.0); NEUTROPHILS # (AUTO) 3.7 K/uL (1.8-8.9); NEUTROPHILS % (AUTO) 61.5 % (43.0-81.0); PLATELET COUNT (AUTO) 195 K/uL (150-450); RED BLOOD CELL COUNT(AUTO) 4.52 MIL/uL (4.5-6.0)
[2022-02-28] MEDS ORDERED: Thiamine 100 MG in IV D5W 50 ML IV SCH (16:00)
[2022-02-28] MEDS ORDERED: IV LR 1000 ML 1,000 ML IV ONE (16:00)
--- NOTE | 2022-02-28 16:11 | NUR ---
PT REFUSED FLUID TO BE ADMINISTERED, LEFT AGAINST MEDICAL ADVICE AND STATED THAT HE NEEDS TO GO PAY HIS PHONE BILL. PT LEFT THE FACILITY WALKING.
--- NOTE | 2022-02-28 16:11 | NUR ---
IV removed. Catheter intact and site benign. Pressure and 4x4 applied to site. No bleeding noted.
[2022-02-28 16:15] VITALS: BP 100/63
[2022-02-28 16:19] LABS: CALCIUM, SERUM 8.5 mg/dL (8.5-10.1); CREATININE 0.8 mg/dL (0.6-1.3); POTASSIUM 3.3 mmol/L (3.5-5.1)
== END 2022-02-28 16:16 | disposition left against medical advice (07) ==
LOC: ER 14:38
DX: R26.81 Unsteadiness on feet (principal); F10.129 Alcohol abuse with intoxication, unspecified; I10 Essential (primary) hypertension; E11.9 Type 2 diabetes mellitus without complications; F41.9 Anxiety disorder, unspecified; F20.0 Paranoid schizophrenia; F17.200 Nicotine dependence, unspecified, uncomplicated; Z60.2 Problems related to living alone; Z79.899 Other long term (current) drug therapy; Z79.84 Long term (current) use of oral hypoglycemic drugs; Y90.6 Blood alcohol level of 120-199 mg/100 ml
CPT/HCPCS: 99283; 85025; 80048; 83735; 36415; 80320; J3490; J7060; J7120; J3411; G0480

== ENCOUNTER 2022-03-08 22:17 | Emergency (ER) | payer OTHER ==
[~2022-03-08] VITALS: Ht 180.3 cm; Wt 99.3 kg
--- NOTE | 2022-03-08 22:39 | NUR ---
[id number] C/O ETOH FROM [employer] . PT SLEEPING AND DROWSY; AROUSABLE TO PAIN. A/OX1 AT THIS TIME. TOLERATING R/A WELL WITH NO RESP DISTRESS OR SOB. CONNECTED PT TO POX AND MONITOR. SAFETY MEASURES IN PLACE.
--- NOTE | 2022-03-08 22:58 | NUR ---
DR. JUDITH PRINGLE AT PT'S BEDSIDE FOR EVAL
--- NOTE | 2022-03-08 23:00 | NUR ---
URINE COLLECTED AND SENT TO LAB
--- NOTE | 2022-03-08 23:12 | NUR ---
PATIENT RELATIONS COORDINATOR AT PT'S BEDSIDE
--- NOTE | 2022-03-08 23:15 | NUR ---
YARD TRUCK DRIVER AT PT'S BEDSIDE
[2022-03-08 23:39] LABS: BASOPHILS % (AUTO) 0.5 % (0.0-2.0); HEMATOCRIT 42 % (39-51); HEMOGLOBIN 14.2 g/dL (13.5-17.5); LYMPHOCYTES # (AUTO) 1.9 K/uL (0.8-4.8); LYMPHOCYTES % (AUTO) 29.1 % (20.0-44.0); MEAN CORPUSCULAR HGB CONC 34 g/dl (31.0-36.0); MEAN CORPUSCULAR VOLUME 88 fL (80-96); MONOCYTES # (AUTO) 0.7 K/uL (0.1-1.30); MONOCYTES % (AUTO) 10.8 % (2.0-12.0); NEUTROPHILS # (AUTO) 3.9 K/uL (1.8-8.9); NEUTROPHILS % (AUTO) 58.6 % (43.0-81.0); PLATELET COUNT (AUTO) 267 K/uL (150-450); RED BLOOD CELL COUNT(AUTO) 4.74 MIL/uL (4.5-6.0); WHITE BLOOD COUNT (AUTO) 6.6 K/uL (4.3-11.0)
[2022-03-08 23:44] LABS: CALCIUM, SERUM 8.1 mg/dL (8.5-10.1); CREATININE 0.9 mg/dL (0.6-1.3)
[2022-03-08 23:52] LABS: ALBUMIN 3.4 g/dL (3.4-5.0); BILIRUBIN,DIRECT 0.2 mg/dL (0.0-0.2); BILIRUBIN,TOTAL 0.5 mg/dL (0.2-1.0); TOTAL PROTEIN, SERUM 6.6 g/dL (6.4-8.2)
[2022-03-09] MEDS: IV NS 0.9% 1,000 ML BAG IV ONE (00:48)
--- NOTE | 2022-03-09 00:50 | NUR ---
ESTABLISHES IV RFA #20G S/L IVF NS 2L BEING ADMINISTERED
[2022-03-09] MEDS ORDERED: ACET-2605 PO (03:51)
[2022-03-09] MEDS ORDERED: POTASSIUM CHLORIDE 20 MEQ TAB.PRT.SR PO ONE (03:57)
[2022-03-09] MEDS: POTASSIUM CHLORIDE 20 MEQ TAB.PRT.SR PO ONE (04:01)
--- NOTE | 2022-03-09 04:17 | NUR ---
PT IS A, OX4. AMBULATORY WITH STEADY GAITS TO THE BATHROOM. PO INTAKE TOLERATED WELL. DENIED SI/HI. REPORTED FEELING WELL AND WILLING TO LEAVE. MD MADE AWARE. CLEAR FOR DISCHARGE PER MD
[2022-03-09 04:38] VITALS: BP 130/77
--- NOTE | 2022-03-09 04:38 | NUR ---
Patient discharged to home in stable condition. Written and verbal after care instructions given. Patient verbalizes understanding of instruction.
== END 2022-03-09 04:39 | disposition home or self-care (01) ==
LOC: ER 22:18
DX: M77.32 Calcaneal spur, left foot (principal); M77.31 Calcaneal spur, right foot; F10.129 Alcohol abuse with intoxication, unspecified; I10 Essential (primary) hypertension; E11.9 Type 2 diabetes mellitus without complications; F41.9 Anxiety disorder, unspecified; F20.0 Paranoid schizophrenia; F17.200 Nicotine dependence, unspecified, uncomplicated; Z60.2 Problems related to living alone; Z79.899 Other long term (current) drug therapy; Y90.8 Blood alcohol level of 240 mg/100 ml or more
CPT/HCPCS: 99284; 73630 ×2; 85025; 80048; 80076; 36415; 80320; 80307; 96360; J7030 ×2; G0480

== ENCOUNTER 2022-03-15 06:59 | Emergency (ER) | payer OTHER ==
[~2022-03-15] VITALS: Ht 180.3 cm; Wt 99.3 kg
[~2022-03-15 06:59] MED LIST changes: +ACET-2605 PO
--- NOTE | 2022-03-15 07:05 | NUR ---
[address] C/O DIARRHEA AND RIGHT LEG PAIN X 3 DAYS . "DRANK BAD WATER". TOLERATING R/A WELL WITH NO RESP DISTRESS. SAFETY MEASURES IN PLACE.
--- NOTE | 2022-03-15 07:21 | NUR ---
LAB AT BEDSIDE
[2022-03-15 07:38] LABS: BASOPHILS % (AUTO) 0.1 % (0.0-2.0); HEMATOCRIT 44 % (39-51); HEMOGLOBIN 14.9 g/dL (13.5-17.5); LYMPHOCYTES # (AUTO) 0.6 K/uL (0.8-4.8); LYMPHOCYTES % (AUTO) 4.6 % (20.0-44.0); MEAN CORPUSCULAR HGB CONC 34 g/dl (31.0-36.0); MEAN CORPUSCULAR VOLUME 88 fL (80-96); MONOCYTES # (AUTO) 0.7 K/uL (0.1-1.30); MONOCYTES % (AUTO) 5.7 % (2.0-12.0); NEUTROPHILS # (AUTO) 10.7 K/uL (1.8-8.9); NEUTROPHILS % (AUTO) 89.6 % (43.0-81.0); PLATELET COUNT (AUTO) 144 K/uL (150-450); RED BLOOD CELL COUNT(AUTO) 4.94 MIL/uL (4.5-6.0); WHITE BLOOD COUNT (AUTO) 11.9 K/uL (4.3-11.0)
[2022-03-15 07:50] LABS: CALCIUM, SERUM 8.3 mg/dL (8.5-10.1); CREATININE 0.9 mg/dL (0.6-1.3)
[2022-03-15 07:58] LABS: ALBUMIN 3.5 g/dL (3.4-5.0); BILIRUBIN,DIRECT 0.7 mg/dL (0.0-0.2); BILIRUBIN,TOTAL 2.3 mg/dL (0.2-1.0); TOTAL PROTEIN, SERUM 6.9 g/dL (6.4-8.2)
[2022-03-15] MEDS ORDERED: POTASSIUM CHLORIDE 20 MEQ TAB.PRT.SR PO ONE ×2 (08:05→08:30)
--- NOTE | 2022-03-15 08:23 | NUR ---
Patient discharged to home in stable condition. Written and verbal after care instructions given. Patient verbalizes understanding of instruction.
[2022-03-15 08:24] VITALS: BP 139/76
== END 2022-03-15 08:24 | disposition home or self-care (01) ==
LOC: ER 07:03
DX: R19.7 Diarrhea, unspecified (principal); E87.6 Hypokalemia; F20.9 Schizophrenia, unspecified; E80.6 Other disorders of bilirubin metabolism; I10 Essential (primary) hypertension; E11.9 Type 2 diabetes mellitus without complications; F41.9 Anxiety disorder, unspecified; F17.200 Nicotine dependence, unspecified, uncomplicated; Z60.2 Problems related to living alone; Z79.899 Other long term (current) drug therapy; Z79.84 Long term (current) use of oral hypoglycemic drugs
CPT/HCPCS: 36415; 80048-TC; 80076-TC; 85025-TC

== ENCOUNTER 2022-07-14 19:52 | Emergency (ER) | payer OTHER ==
[~2022-07-14] VITALS: Ht 185.4 cm; Wt 90.7 kg
[2022-07-14 21:03] VITALS: BP 140/71
[2022-07-14] MEDS ORDERED: DOXY-226 PO (21:13)
== END 2022-07-14 22:00 | disposition home or self-care (01) ==
LOC: EDBD 19:55 → ER 19:55
DX: L03.114 Cellulitis of left upper limb (principal); I10 Essential (primary) hypertension; E11.9 Type 2 diabetes mellitus without complications; F41.9 Anxiety disorder, unspecified; F20.0 Paranoid schizophrenia; Z60.2 Problems related to living alone; F17.200 Nicotine dependence, unspecified, uncomplicated; Z79.84 Long term (current) use of oral hypoglycemic drugs

== ENCOUNTER 2022-07-26 21:28 | Emergency (ER) | payer OTHER ==
[~2022-07-26] VITALS: Ht 175.3 cm; Wt 77.1 kg
[~2022-07-26 21:28] MED LIST changes: +DOXY-226 PO
[2022-07-26 22:20] VITALS: BP 148/88
[2022-07-26] MEDS ORDERED: GABAPENTIN 300 MG CAPSULE ONE (22:35)
[2022-07-26] MEDS ORDERED: GABA600T12 PO (22:36)
--- NOTE | 2022-07-26 22:38 | NUR ---
Patient discharged to home in stable condition. Written and verbal after care instructions given. Patient verbalizes understanding of instruction.
[2022-07-26] MEDS ORDERED: GABAPENTIN 100 MG CAPSULE PO ONE (23:00)
== END 2022-07-26 22:38 | disposition home or self-care (01) ==
LOC: ER 21:31
DX: M79.2 Neuralgia and neuritis, unspecified (principal); I10 Essential (primary) hypertension; E11.40 Type 2 diabetes mellitus with diabetic neuropathy, unspecified; F41.9 Anxiety disorder, unspecified; F17.200 Nicotine dependence, unspecified, uncomplicated; Z79.899 Other long term (current) drug therapy; Z59.00 Homelessness unspecified; Z79.84 Long term (current) use of oral hypoglycemic drugs

== ENCOUNTER 2022-07-27 17:00 | Emergency (ER) | payer OTHER ==
[~2022-07-27] VITALS: Ht 172.7 cm; Wt 81.6 kg
[~2022-07-27 17:00] MED LIST changes: +GABA600T12 PO
--- NOTE | 2022-07-27 19:02 | NUR ---
TO ER 13, NO APPARENT CHANGE IN CONDITION
[2022-07-27 20:00] VITALS: BP 130/70
--- NOTE | 2022-07-27 21:06 | NUR ---
Patient discharged to home in stable condition. Written and verbal after care instructions given. Patient verbalizes understanding of instruction.
== END 2022-07-27 21:07 | disposition home or self-care (01) ==
LOC: ER 17:06
DX: M25.562 Pain in left knee (principal); M25.561 Pain in right knee; I10 Essential (primary) hypertension; E11.9 Type 2 diabetes mellitus without complications; F20.9 Schizophrenia, unspecified; F41.9 Anxiety disorder, unspecified; Z60.2 Problems related to living alone; Z79.899 Other long term (current) drug therapy
CPT/HCPCS: 73564-TC; 82962-TC

== ENCOUNTER 2022-07-30 15:30 | Emergency (ER) | payer OTHER ==
[~2022-07-30] VITALS: Ht 182.9 cm; Wt 96.6 kg
--- NOTE | 2022-07-30 16:00 | NUR ---
BIBRA78 C/O HEADACHE S/P WITNESSED GLF. PT DENIES LOC. HEAD LAC ON HEAD. PLACED IN BED AND MONITOR, AAOX4, VSS. AWAITING MD ORDERS.
--- NOTE | 2022-07-30 16:21 | NUR ---
PATIENT TO RADIOLOGY FOR HEAD AND C SPINE CT SCAN VIA GURNEY.
[2022-07-30 19:03] VITALS: BP 170/110
== END 2022-07-30 19:00 | disposition home or self-care (01) ==
LOC: ER 15:35
DX: F10.10 Alcohol abuse, uncomplicated (principal); I10 Essential (primary) hypertension; E11.9 Type 2 diabetes mellitus without complications; Z60.2 Problems related to living alone; F17.200 Nicotine dependence, unspecified, uncomplicated; Z79.84 Long term (current) use of oral hypoglycemic drugs; Z79.899 Other long term (current) drug therapy; Y90.9 Presence of alcohol in blood, level not specified
CPT/HCPCS: 70450-TC; 72125-TC

== ENCOUNTER 2022-08-05 05:08 | Emergency (ER) | payer OTHER ==
[~2022-08-05] VITALS: Ht 170.2 cm; Wt 83.9 kg
[2022-08-05 05:12] VITALS: BP 141/82
--- NOTE | 2022-08-05 05:12 | NUR ---
BIBRA60. CAME FOR "IM FREEZING". VSS.
--- NOTE | 2022-08-05 06:58 | NUR ---
Patient discharged to home in stable condition. Written and verbal after care instructions given. Patient verbalizes understanding of instruction.
== END 2022-08-05 06:59 | disposition home or self-care (01) ==
LOC: ER 05:15
DX: T69.9XXA Effect of reduced temperature, unspecified, initial encounter (principal); I10 Essential (primary) hypertension; E11.9 Type 2 diabetes mellitus without complications; F41.9 Anxiety disorder, unspecified; F17.200 Nicotine dependence, unspecified, uncomplicated; Z60.2 Problems related to living alone; Z79.84 Long term (current) use of oral hypoglycemic drugs; Z79.899 Other long term (current) drug therapy; X31.XXXA Exposure to excessive natural cold, initial encounter

== ENCOUNTER 2022-09-16 12:32 | Inpatient (IN) | payer OTHER ==
[~2022-09-16] VITALS: Ht 180.3 cm; Wt 99.8 kg
--- NOTE | 2022-09-16 13:00 | NUR ---
PATIENT BIBA FOR CHEST PAIN AND BLE EDEMA. A/O X 3, PATIENT STATES HX OF DM (TAKES METFORMIN), HX CVA (COUPLE OF MONTHS AGO), HTN. NO OTHER HISTORY NOTED AT THIS TIME. EKG PERFORMED, ACCUCHECK OBTAINED, BG 210.
[2022-09-16] MEDS ORDERED: LOVA10TA PO (13:49)
[2022-09-16] MEDS ORDERED: SITA100T PO (13:49)
[2022-09-16] MEDS ORDERED: LURA40TA PO (13:49)
--- NOTE | 2022-09-16 13:50 | NUR ---
MOVE SHEET SUBMITTED.
--- NOTE | 2022-09-16 13:56 | NUR ---
BLOOD SAMPLES OBTAINED
[2022-09-16 14:06] LABS: BASOPHILS % (AUTO) 0.2 % (0.0-2.0); HEMATOCRIT 46 % (39-51); HEMOGLOBIN 15.4 g/dL (13.5-17.5); LYMPHOCYTES # (AUTO) 0.6 K/uL (0.8-4.8); LYMPHOCYTES % (AUTO) 6.1 % (20.0-44.0); MEAN CORPUSCULAR HGB CONC 33 g/dl (31.0-36.0); MEAN CORPUSCULAR VOLUME 90 fL (80-96); MONOCYTES # (AUTO) 0.3 K/uL (0.1-1.30); MONOCYTES % (AUTO) 3.4 % (2.0-12.0); NEUTROPHILS # (AUTO) 8.6 K/uL (1.8-8.9); NEUTROPHILS % (AUTO) 90.3 % (43.0-81.0); PLATELET COUNT (AUTO) 189 K/uL (150-450); RED BLOOD CELL COUNT(AUTO) 5.13 MIL/uL (4.5-6.0); WHITE BLOOD COUNT (AUTO) 9.6 K/uL (4.3-11.0)
[2022-09-16 14:24] LABS: CALCIUM, SERUM 9.3 mg/dL (8.5-10.1); CARBON DIOXIDE 24 mmol/L (21-32); CHLORIDE 101 mmol/L (98-107); CREATININE 0.5 mg/dL (0.6-1.3); GLUCOSE 211 mg/dL (74-106); POTASSIUM 3.9 mmol/L (3.5-5.1); SODIUM SERUM 136 mmol/L (136-145); UREA NITROGEN, BLOOD 11 mg/dL (7-18)
[2022-09-16 14:34] LABS: ALANINE AMINOTRANSFERASE 34 U/L (12-78); ALBUMIN 3.1 g/dL (3.4-5.0); ALKALINE PHOSPHATASE 120 U/L (46-116); ASPARTATE AMINOTRANSFERASE 45 U/L (15-37); BILIRUBIN,DIRECT 0.2 mg/dL (0.0-0.2); BILIRUBIN,TOTAL 0.4 mg/dL (0.2-1.0); TOTAL PROTEIN, SERUM 6.7 g/dL (6.4-8.2)
[2022-09-16 14:43] LABS: ALCOHOL, BLOOD 122 mg/dL (0-0)
--- NOTE | 2022-09-16 14:50 | NUR ---
JULES DONALDSON FOR [facility] [phone] GIVING AUTH FOR ADMISSION [id number].
[2022-09-16] MEDS ORDERED: IPRATROPIUM NEB FS 0.5 MG/2.5 ML AMPUL.NEB NEB ONE (15:00)
[2022-09-16] MEDS ORDERED: PIPERACILLIN /TAZOBACTAM 3.375 G in IV D5W 50 ML IV ONE (15:00)
[2022-09-16] MEDS ORDERED: ALBUTEROL FS 2.5 MG/3 ML VIAL.NEB CONTNEB ONE (15:00)
[2022-09-16] MEDS ORDERED: VANCOMYCIN 1 GM in IV D5W 250 ML IV ONE (15:00)
[2022-09-16] MEDS ORDERED: FUROSEMIDE 40 MG/4 ML VIAL IV ONE (15:00)
--- NOTE | 2022-09-16 15:40 | NUR ---
COVID SWAB OBTAINED
[2022-09-16] MEDS ORDERED: MAG HYDROX/AL HYDROX/SIMETH 30 ML UDC PO PRN (16:00)
[2022-09-16] MEDS ORDERED: HYDROCODONE/APAP 5/325MG TABLET PO PRN (16:00)
[2022-09-16] MEDS ORDERED: MAGNESIUM HYDROXIDE 30 ML UDC PO PRN (16:00)
[2022-09-16] MEDS ORDERED: ONDANSETRON HCL/PF 4 MG/2 ML VIAL IVP PRN (16:00)
[2022-09-16] MEDS ORDERED: ZOLPIDEM TARTRATE 5 MG TABLET PO PRN (16:00)
[2022-09-16] MEDS ORDERED: Z GUARD REMEDY 4 OZ OINT TP PRN (16:00)
--- NOTE | 2022-09-16 16:00 | NUR ---
RT at bedside for breathing treatment
[2022-09-16] MEDS ORDERED: FUROSEMIDE 40 MG/4 ML VIAL ONE (16:02)
[2022-09-16] MEDS ORDERED: ALBUTEROL FS 2.5 MG/3 ML VIAL.NEB ONE (16:08)
[2022-09-16] MEDS ORDERED: IPRATROPIUM NEB FS 0.5 MG/2.5 ML AMPUL.NEB ONE (16:08)
[2022-09-16] MEDS ORDERED: LORAZEPAM 1 MG TABLET ONE (17:36)
--- NOTE | 2022-09-16 17:47 | NUR ---
GOT BED 102 ADMITTING INFORMED.
[2022-09-16] MEDS ORDERED: LORAZEPAM 1 MG TABLET PO ONE (18:00)
--- NOTE | 2022-09-16 18:23 | NUR ---
R AC 20 G forearm
[2022-09-16] MEDS ORDERED: LORAZEPAM INJ 2 MG/ML VIAL ONE (19:50)
[2022-09-16] MEDS: LORAZEPAM INJ 2 MG/ML VIAL IV PRN (19:55)
--- NOTE | 2022-09-16 20:05 | NUR ---
rEPORT GIVEN TO AYDE
--- NOTE | 2022-09-16 20:41 | NUR ---
PATIENT TRANSPORTED TO ROOM 102 ON HEALTH PRACTICE MANAGER PER ACLS IN STABLE CONDITION BELONGINGS LEFT AT BEDSIDE.
--- NOTE | 2022-09-16 20:50 | NUR ---
RN NOTES ADMITTED A 62 Y/O MALE PATIENT FROM ER A/O X1-2 WITH CONFUSION VIA GURNEY WITH DX OF CHF. ON ROOM AIR SATING 96% NO SOB NO DISTRESS NOTED AT THIS TIME. VITAL SIGNS TAKEN AND RECORDED FEBRILE 101. SAFELY TRANSFER TO BED. HOOKED TO ENVIRONMENTAL FIELD OFFICE MANAGER. COMPLETE BODY ASSESSMENT RENDERED PICTURE TAKEN AND FILED. BELONGINGS CHECKED AND ACCOUNTED. IV ACCESS ON R WRIST # 20 PATENT FLUSHES WELL. COOLING MEASURES RENDERD TEMP WENT DOWN TO 99.6. ALL SAFET MEASURES IN PLACE. HOB ELEVATED. WILL CLOSELY MONITOR THE PATIENT
[2022-09-16 21:41] VITALS: BP 124/75
[2022-09-16] MEDS: ACETAMINOPHEN 325 MG TABLET PO PRN (21:41)
[2022-09-16] MEDS: ZOSYN IVPB 3.375 G in IV D5W 50ml IV SCH (21:41)
[2022-09-16] MEDS: ENOXAPARIN SODIUM 40 MG/0.4 ML DISP.SYRIN SQ SCH (21:43)
[2022-09-16 22:00] VITALS: BP 124/75
[2022-09-16] MEDS ORDERED: VANCOMYCIN 1 GM VIAL ONE (23:40)
[2022-09-16] MEDS ORDERED: VANCOMYCIN 500 MG VIAL ONE (23:44)
[2022-09-16] MEDS: VANCOMYCIN 1.25 GM in IV D5W 250 ML IV SCH (23:52)
[2022-09-17] MEDS: LORAZEPAM INJ 2 MG/ML VIAL IV PRN (02:03)
--- NOTE | 2022-09-17 02:45 | NUR ---
RN NOTES NOTED PATIENT HR 130'S, RR 28, TEMP 99.6.SATURATION 91% PUT ON 2LPM NC. PRN ATIVAN GIVEN. INFORMED BINA ENGINE SERVICE REPAIRER WITH ORDER FOR STAT CHEST XRAY.CONTINUES COOLING MEASURES RENDERED.
[2022-09-17] MEDS: ZOSYN IVPB 3.375 G in IV D5W 50ml IV SCH ×4 (03:30→21:09)
[2022-09-17 04:00] VITALS: BP 130/70
--- NOTE | 2022-09-17 06:35 | NUR ---
RN NOTES RELAYED CHEST XRAY RESULT TO BINA BANERJEE WAITING FOR CALL BACK
--- NOTE | 2022-09-17 06:48 | NUR ---
RN NOTES PATIENT ON BED ON NASAL CANULA AT 2LPM SATING 94%, STILL WITH CRACKLES, COOLING MEASURES DONE CONTINUOUSLY. ALL SAFETY MEASURES IN PLACE AT ALL TIMES. HOB ELEVATED. CALL LIGHT WITHIN REACH. ALL DUE MEDS GIVEN AT ORDERED, WILL ENDORSED TO NEXT SHIFT
[2022-09-17 06:53] LABS: BASOPHILS % (AUTO) 0.2 % (0.0-2.0); HEMATOCRIT 40 % (39-51); HEMOGLOBIN 13.3 g/dL (13.5-17.5); LYMPHOCYTES # (AUTO) 0.7 K/uL (0.8-4.8); LYMPHOCYTES % (AUTO) 5.4 % (20.0-44.0); MEAN CORPUSCULAR HGB CONC 33 g/dl (31.0-36.0); MEAN CORPUSCULAR VOLUME 89 fL (80-96); MONOCYTES # (AUTO) 0.8 K/uL (0.1-1.30); MONOCYTES % (AUTO) 6.6 % (2.0-12.0); NEUTROPHILS # (AUTO) 11.1 K/uL (1.8-8.9); NEUTROPHILS % (AUTO) 87.8 % (43.0-81.0); PLATELET COUNT (AUTO) 168 K/uL (150-450); WHITE BLOOD COUNT (AUTO) 12.6 K/uL (4.3-11.0)
--- NOTE | 2022-09-17 07:15 | NUR ---
NATIONAL EXPANSION RECRUITER OPENING NOTES: RECEIVED PATIENT IN BED ASLEEP BUT EASILY AROUSES TO VOICE AND SOUND. PATIENT IS ALERT TO NAME BUT WITH PERIODS OF CONFUSION. NO RESPIRATORY DISTRESS NOTED. ON OXYGEN @ 2L/MIN VIA N/C ON ST PER TELE MONITOR WITH HR OF 105. IV ACCESS ON LEFT HAND AND RIGHT WRIST, PATENT, NO S/S INFILTRATION NOTED, FLUSHES WELL. NO C/O PAIN OR DISCOMFORT NOTED AT THIS TIME. ALL SAFETY MEASURES IN PLACE. BED LOCKED AND IN LOWEST POSITION WITH BED ALARM ON. CALL LIGHT WITHIN REACH. WILL CONTINUE TO MONITOR PATIENT THROUGHOUT SHIFT.
[2022-09-17 07:35] LABS: CREATININE 1.4 mg/dL (0.6-1.3); MAGNESIUM 1.6 mg/dL (1.8-2.4); PHOSPHORUS 3.7 mg/dL (2.5-4.9); POTASSIUM 4.2 mmol/L (3.5-5.1)
--- NOTE | 2022-09-17 07:39 | NUR ---
SPOKE WITH JUAN A AT THE PHARMACY AND STATED OK TO GIVEN VANCO ORDERED TODAY WITH TROUGH @ 1400
[2022-09-17] MEDS: PANTOPRAZOLE 40 MG TABLET.DR PO SCH (07:44)
[2022-09-17] MEDS: VANCOMYCIN 1.25 GM in IV D5W 250 ML IV SCH (07:44)
[2022-09-17 08:00] VITALS: BP 137/74
[2022-09-17] MEDS ORDERED: FUROSEMIDE 40 MG/4 ML VIAL IV SCH (09:00)
[2022-09-17] MEDS ORDERED: CHLORDIAZEPOXIDE HCL 25 MG CAPSULE PO SCH (09:00)
--- NOTE | 2022-09-17 09:18 | NUR ---
DR GLEASON VISITED THE PATIENT WITH AN ORDER FOR STAT ABG, ORDER NOTED
[2022-09-17] MEDS ORDERED: IV NS 0.9% 1,000 ML IV PRN (09:30)
[2022-09-17] MEDS: Magnesium 1GM/D5W 100ML PREMIX 100 ML IV SCH ×2 (09:44→10:52)
[2022-09-17] MEDS ORDERED: CHLORDIAZEPOXIDE HCL 25 MG CAPSULE PO PRN (10:00)
[2022-09-17 12:00] VITALS: BP 127/63
[2022-09-17 16:00] VITALS: BP 126/59
[2022-09-17] MEDS: ACETAMINOPHEN 325 MG TABLET PO PRN (16:04)
[2022-09-17] MEDS: IV D5/0.45 NACL 1,000 ML IV SCH (17:36)
--- NOTE | 2022-09-17 18:53 | NUR ---
MANAGER STYLIST CLOSING NOTES: PATIENT IN BED ASLEEP BUT EASILY AROUSES TO VOICE AND TACTILE STIMULI. NO RESPIRATORY DISTRESS NOTED THROUGHOUT SHIFT. ON OXYGEN @ 2L/MIN VIA N/C WITH OXYGEN SATURATION OF 94%. ON SR PER TELE MONITOR WITH HR OF 88. IV ACCESS ON LEFT HAND INFUSING WITH D 51/2 NS @ 75 ML/HR, NO S/S INFILTRATION NOTED. NO C/O PAIN OR DISCOMFORT NOTED THROUGHOUT SHIFT. ALL SAFETY MEASURES IMPLEMENTED. BED LOCKED AND IN LOWEST POSITION WITH BED ALARM ON. CALL LIGHT WITHIN REACH. WILL ENDORSE TO INCOMING NURSE FOR CONTINUITY OF CARE.
--- NOTE | 2022-09-17 19:30 | NUR ---
RN NOTES PATIENT ON BED A/O X1-2 WITH CONFUSION. ON NASAL CANULA SATING 96% NO SOB NO DISTRESS NOTED AT THIS TIME. VITAL SIGNS TAKEN AND RECORDED AFEBRILE. HOOKED . IV ACCESS ON R WRIST # 20, L HAND # 20 PATENT FLUSHES WELL RUNNING D5 1/2 NS @ 75CC/HR ALL SAFETY MEASURES IN PLACE. HOB ELEVATED. WILL CLOSELY MONITOR THE PATIENT
[2022-09-17 20:00] VITALS: BP 142/74
[2022-09-17] MEDS ORDERED: DEXTROSE 50%-WATER 50 ML DISP.SYRIN IV PRN (21:00)
[2022-09-17] MEDS: ENOXAPARIN SODIUM 40 MG/0.4 ML DISP.SYRIN SQ SCH (21:16)
[2022-09-17 22:24] LABS: BAND % (MANUAL) 9 % (0.0-5.0); LYMPHOCYTES % (MANUAL) 5 % (16-48); MONOCYTES % (MANUAL) 5 % (0-11.0); NEUTROPHILS % (MANUAL) 79 (42-76); REACTIVE LYMPHOCYTES 2 % (0-0)
[2022-09-17] MEDS: INSULIN REGULAR, HUMAN 100 UNIT/ML 3 ML VIAL SQ PRN (23:17)
[2022-09-17] MEDS: BLOOD SUGAR DIAGNOSTIC 1 EACH STRIP IN SCH (23:26)
[2022-09-18] VITALS: BP 149/73
[2022-09-18] MEDS: ZOSYN IVPB 3.375 G in IV D5W 50ml IV SCH ×3 (03:08→14:44)
[2022-09-18 04:00] VITALS: BP 117/64
[2022-09-18] MEDS: BLOOD SUGAR DIAGNOSTIC 1 EACH STRIP IN SCH ×4 (05:16→23:25)
[2022-09-18] MEDS: INSULIN REGULAR, HUMAN 100 UNIT/ML 3 ML VIAL SQ PRN ×4 (05:17→23:27)
[2022-09-18] MEDS: IV D5/0.45 NACL 1,000 ML IV SCH ×2 (06:00→20:20)
--- NOTE | 2022-09-18 06:45 | NUR ---
RN NOTES PATIENT ON BED ON NASAL CANULA AT 2LPM SATING 94%, NO SOB NO DISTRESS NO FEVER DURING THIS SHIFT. IV ACCESS AT R HAND # 20 RUNNING D5 1/2 NS @ 75CC/HR. ALL SAFETY MEASURES IN PLACE AT ALL TIMES. HOB ELEVATED. CALL LIGHT WITHIN REACH. ALL DUE MEDS GIVEN AT ORDERED, WILL ENDORSED TO NEXT SHIFT
[2022-09-18 06:54] LABS: BASOPHILS # (AUTO) 0.1 K/uL (0.0-0.2); BASOPHILS % (AUTO) 0.3 % (0.0-2.0); EOSINOPHILS % (AUTO) 0.1 % (0.0-6.0); HEMATOCRIT 36 % (39-51); LYMPHOCYTES # (AUTO) 0.9 K/uL (0.8-4.8); LYMPHOCYTES % (AUTO) 4.8 % (20.0-44.0); MEAN CORPUSCULAR HGB CONC 33 g/dl (31.0-36.0); MEAN CORPUSCULAR VOLUME 90 fL (80-96); MONOCYTES # (AUTO) 0.5 K/uL (0.1-1.30); MONOCYTES % (AUTO) 2.8 % (2.0-12.0); NEUTROPHILS # (AUTO) 16.7 K/uL (1.8-8.9); PLATELET COUNT (AUTO) 120 K/uL (150-450); RED BLOOD CELL COUNT(AUTO) 4.02 MIL/uL (4.5-6.0); WHITE BLOOD COUNT (AUTO) 18.2 K/uL (4.3-11.0)
--- NOTE | 2022-09-18 07:00 | NUR ---
RN NOTE RECEIVED PATIENT IN BED RESTING ALERT ORIENTED X1-2 VERBALLY RESPONSIVE ON 2L OXYGEN VIA NASAL CANNULA,O2:94%,IV SITE IS ON RIGHT WRIST AND LEFT HAND INTACT PATENT,ON IV HYDRATION D5 1/2 NS 75CC/HR,INCONTINENT BOWEL/BLADDER SAFETY MEASURE IMPLEMENT BED IN LOW POSITION AND LOCKED,HEAD OF THE BED ELEVATED,BED ALARM IS ON,CONTINUE TO MONITOR.
[2022-09-18 07:11] LABS: ALBUMIN 2.4 g/dL (3.4-5.0); BILIRUBIN,TOTAL 1.4 mg/dL (0.2-1.0); CALCIUM, SERUM 8.4 mg/dL (8.5-10.1); CREATININE 1.2 mg/dL (0.6-1.3); MAGNESIUM 2.2 mg/dL (1.8-2.4); PHOSPHORUS 3.7 mg/dL (2.5-4.9); TOTAL PROTEIN, SERUM 5.8 g/dL (6.4-8.2)
[2022-09-18] MEDS: PANTOPRAZOLE 40 MG TABLET.DR PO SCH (07:24)
[2022-09-18 08:00] VITALS: BP 141/63
[2022-09-18] MEDS ORDERED: VANCOMYCIN HCL 0.75 GM in IV D5W 250 ML IV SCH (08:00)
[2022-09-18] MEDS: POTASSIUM CHLORIDE 20 MEQ TAB.PRT.SR PO SCH ×3 (08:06→10:21)
[2022-09-18] MEDS: CARVEDILOL 12.5 MG TABLET PO SCH ×2 (08:48→20:55)
[2022-09-18 12:00] VITALS: BP 133/70
[2022-09-18 16:00] VITALS: BP 135/69
[2022-09-18] MEDS ORDERED: CEFEPIME 1 GM in IV D5W 50 ML IV SCH (17:00)
--- NOTE | 2022-09-18 18:16 | NUR ---
RN NOTE PATIENT REMAINS ALERT ORIENTED X1-2 VERBALLY RESPONSIVE ON 2L OXYGEN VIA NASAL CANNULA,O2:96% NO SOB NOT ACUTE DISTRESS NOTED,ALL DUE MEDS GIVEN MD ORDERED KEPT CLEAN AND DRY ALL THE TIME,WILL ENDORSE NEXT COMING SHIFT FOR CONTINUATION OF CARE.
--- NOTE | 2022-09-18 19:30 | NUR ---
STEELWORKER OPENING NOTE RECEIVED PATIENT IN BED, WITH HOB ELEVATED, ALERT AND ORIENTED X1. AFEBRILE AND NOT IN ANY FORM OF ACUTE DISTRESS. ON O2 INHALATION VIA NASAL CANNULA AT 2LPM. WITH IV ACCESS ON R WRIST AND LEFT HAND RUNNING WITH D5 1/2 NS AT 75ML/HR. SAFETY MEASURES IN PLACE. KEPT BED IN LOCKED AND IN LOW POSITION. SIDE RAILS UP X2. CALL LIGHT WITHIN EASY REACH.
[2022-09-18 20:00] VITALS: BP 110/72
[2022-09-18] MEDS: CEFEPIME 2 GM in IV D5W 100 ML IV SCH (20:54)
[2022-09-18] MEDS: DOXYCYCLINE HYCLATE (100 MG) 100 MG TABLET PO SCH (20:54)
[2022-09-18] MEDS: ENOXAPARIN SODIUM 40 MG/0.4 ML DISP.SYRIN SQ SCH (20:58)
[2022-09-19] VITALS: BP 112/64
[2022-09-19 04:00] VITALS: BP 115/66
[2022-09-19] MEDS: BLOOD SUGAR DIAGNOSTIC 1 EACH STRIP IN SCH ×3 (05:36→17:05)
[2022-09-19] MEDS: INSULIN REGULAR, HUMAN 100 UNIT/ML 3 ML VIAL SQ PRN ×3 (05:40→16:53)
--- NOTE | 2022-09-19 06:30 | NUR ---
EVP MARKETING CLOSING NOTE PATIENT IN BED, WITH HOB ELEVATED, ASLEEP BUT EASY TO AROUSE AND RESPONSIVE. AFEBRILE AND NOT IN ANY FORM OF ACUTE DISTRESS. ON O2 INHALATION VIA NASAL CANNULA AT 2LPM. ON TELE MONITORING WITH CURRENT READING OF SR 80. WITH IV ACCESS ON R WRIST AND LEFT HAND RUNNING WITH D5 1/2 NS AT 75ML/HR. MONITORED FOR ANY S/SX.OF HYPO/HYPERGLYCEMIA. MEDICATED ORDERED. CONTINUOUS ON IV ATB FOR CELLULITIS, MONITORED FOR ANY ADVERSE REACTION. ENCOURAGED TO TURN AND REPOSITION EVERY 2 HOURS AND TOLERATED TO PROMOTE PROPER CIRCULATION AND COMFORT. SAFETY MEASURES IN PLACE. KEPT BED IN LOCKED AND IN LOW POSITION. SIDE RAILS UP X2. CALL LIGHT WITHIN EASY REACH. ALL NURSING NEEDS ATTENDED. ENDORSED TO INCOMING SHIFT FOR CONTINUITY OF CARE.
--- NOTE | 2022-09-19 07:30 | NUR ---
HEALTH AND SAFETY MANAGER AM NOTE RECEIVED PATIENT IN BED RESTING ALERT ORIENTED X1-2, SLIGHTLY SLURRED SPEECH, ABLE TO MAKE NEEDS KNOWN. ON 2L OXYGEN VIA NASAL CANNULA O2 SAT 94%, NO SOB, SR HR 76. DENIES PAIN/DISCOMFORT. RIGHT WRIST AND LEFT HAND INTACT PATENT,ON IV HYDRATION D5 1/2 NS 75CC/HR,BOTH SITES CLEAR. BED REST FOR NOW. CONDOM CATH, INCONTINENT BOWEL/BLADDER SAFETY MEASURE IMPLEMENT BED IN LOW POSITION AND LOCKED,HEAD OF THE BED ELEVATED,BED ALARM IS ON,CONTINUE TO MONITOR. FOR SWALLOW EVAL AND CXR.
[2022-09-19 07:36] LABS: BASOPHILS % (AUTO) 0.1 % (0.0-2.0); EOSINOPHILS % (AUTO) 0.4 % (0.0-6.0); HEMATOCRIT 33 % (39-51); HEMOGLOBIN 11.2 g/dL (13.5-17.5); LYMPHOCYTES % (AUTO) 8.2 % (20.0-44.0); MEAN CORPUSCULAR HGB CONC 34 g/dl (31.0-36.0); MEAN CORPUSCULAR VOLUME 90 fL (80-96); MONOCYTES # (AUTO) 0.7 K/uL (0.1-1.30); MONOCYTES % (AUTO) 5.5 % (2.0-12.0); NEUTROPHILS # (AUTO) 10.8 K/uL (1.8-8.9); NEUTROPHILS % (AUTO) 85.8 % (43.0-81.0); PLATELET COUNT (AUTO) 114 K/uL (150-450); WHITE BLOOD COUNT (AUTO) 12.6 K/uL (4.3-11.0)
[2022-09-19] MEDS: PANTOPRAZOLE 40 MG TABLET.DR PO SCH (07:39)
[2022-09-19 08:00] VITALS: BP 132/78
[2022-09-19 08:02] LABS: CALCIUM, SERUM 8.5 mg/dL (8.5-10.1); CREATININE 0.9 mg/dL (0.6-1.3); MAGNESIUM 2.3 mg/dL (1.8-2.4); PHOSPHORUS 3.2 mg/dL (2.5-4.9); POTASSIUM 3.3 mmol/L (3.5-5.1)
[2022-09-19] MEDS: CEFEPIME 2 GM in IV D5W 100 ML IV SCH ×2 (08:11→20:52)
[2022-09-19] MEDS ORDERED: IV D5/0.45 NACL 1,000 ML IV PRN (08:24)
[2022-09-19] MEDS: POTASSIUM CHLORIDE 20 MEQ TAB.PRT.SR PO SCH ×3 (09:07→10:53)
[2022-09-19] MEDS: DOXYCYCLINE HYCLATE (100 MG) 100 MG TABLET PO SCH ×2 (09:07→20:53)
[2022-09-19] MEDS: CARVEDILOL 12.5 MG TABLET PO SCH ×2 (09:08→20:57)
--- NOTE | 2022-09-19 09:30 | NUR ---
RN NOTES DUE MEDS GIVEN
--- NOTE | 2022-09-19 11:25 | NUR ---
WOUND CARE CONSULT: PT PRESENTS WITH RT THIGH WOUND, PRESENT ON ADMISSION AND LEFT ELBOW WOUND WITH SURROUNDING REDNESS AND SWELLING, PRESENT ON ADMISSION. MULTIPLE AREAS OF SKIN DISCOLORATION AND DRY SCABS NOTED WELL ON ADMISSION. DR TISHA GARRIDO CALLED FOR SURGICAL CONSULT. DISCUSSED SKIN PROTECTION AND WOUND CARE RECOMMENDATIONS WITH NURSING STAFF. MD IN AGREEMENT WITH PLAN OF CARE. Addendum: 09/19/22 at 1128 by OSIRIS HALL WNDNU Amended: Links added.
[2022-09-19] MEDS ORDERED: CHLORDIAZEPOXIDE HCL 25 MG CAPSULE PO PRN (11:30)
[2022-09-19] MEDS: DAKINS QUARTER STRENGTH (0.125%) 480 ML BOTTLE TOP SCH (12:29)
[2022-09-19 16:00] VITALS: BP 134/73
--- NOTE | 2022-09-19 16:46 | NUR ---
SS consult requested for homelessness. The pt. is a 62 year old male who was admitted for CHF, LE Cellulitis and ETOH withdrawal. SW met with pt. at bedside. The pt. was irritable and states that he would not speak to SW until ROUTE CLERK came to change him. SW notified RN & ROUTE CLERK. Per Le LIPSCOMB, the pt. will not be discharged today as he possibly needs a surgical procedure. Note. SW will follow up at a later time.
--- NOTE | 2022-09-19 18:30 | NUR ---
GAS WELL PUMPER CLOSING NOTE PATIENT IN BED RESTING ALERT ORIENTED X 2, SLIGHTLY SLURRED SPEECH, ABLE TO MAKE NEEDS KNOWN. ON ROOM AIR. O2 SAT 99%, NO SOB, SR HR 68. DENIES PAIN/DISCOMFORT. RIGHT WRIST AND LEFT HAND INTACT PATENT,ON IV HYDRATION D5 1/2 NS 75CC/HR,BOTH SITES CLEAR. BED REST FOR NOW. CONDOM CATH, URINE OUTPUT 720 ML, INCONTINENT BOWEL/BLADDER SAFETY MEASURE IMPLEMENT BED IN LOW POSITION AND LOCKED,HEAD OF THE BED ELEVATED,BED ALARM IS ON,ALL NEEDS MET. PM CARE DONE EARLIER. WILL ENDORSE TO NEXT SHIFT FOR RICKY. SEEN BY WOUND CARE NURSE OSIRIS KNIGHT. PT NOTED TO HAVE PURULENT LEFT ELBOW AND NECROTIC WOUND ON RIGHT THIGH. FOR SURGICAL REFERRAL. SEE WOUND TREATMENT.
[2022-09-19 20:00] VITALS: BP 132/78
[2022-09-19] MEDS: ENOXAPARIN SODIUM 40 MG/0.4 ML DISP.SYRIN SQ SCH (21:02)
[2022-09-20] VITALS: BP 114/73
[2022-09-20] MEDS: INSULIN REGULAR, HUMAN 100 UNIT/ML 3 ML VIAL SQ PRN ×5 (00:38→23:58)
[2022-09-20 04:00] VITALS: BP 116/75
[2022-09-20 06:17] LABS: BASOPHILS % (AUTO) 0.1 % (0.0-2.0); EOSINOPHILS % (AUTO) 0.9 % (0.0-6.0); HEMATOCRIT 33 % (39-51); HEMOGLOBIN 11.3 g/dL (13.5-17.5); LYMPHOCYTES # (AUTO) 1.3 K/uL (0.8-4.8); LYMPHOCYTES % (AUTO) 14.8 % (20.0-44.0); MEAN CORPUSCULAR HGB CONC 34 g/dl (31.0-36.0); MEAN CORPUSCULAR VOLUME 90 fL (80-96); MONOCYTES # (AUTO) 0.8 K/uL (0.1-1.30); MONOCYTES % (AUTO) 9.5 % (2.0-12.0); NEUTROPHILS # (AUTO) 6.4 K/uL (1.8-8.9); NEUTROPHILS % (AUTO) 74.7 % (43.0-81.0); PLATELET COUNT (AUTO) 111 K/uL (150-450); RED BLOOD CELL COUNT(AUTO) 3.71 MIL/uL (4.5-6.0); WHITE BLOOD COUNT (AUTO) 8.6 K/uL (4.3-11.0)
[2022-09-20] MEDS: BLOOD SUGAR DIAGNOSTIC 1 EACH STRIP IN SCH ×5 (06:18→23:57)
[2022-09-20 06:30] LABS: CALCIUM, SERUM 8.9 mg/dL (8.5-10.1); CREATININE 0.9 mg/dL (0.6-1.3); MAGNESIUM 2.1 mg/dL (1.8-2.4); PHOSPHORUS 3.7 mg/dL (2.5-4.9); POTASSIUM 3.6 mmol/L (3.5-5.1)
--- NOTE | 2022-09-20 07:30 | NUR ---
BASTING CLEANER AM NOTE RECEIVED PATIENT IN BED RESTING ALERT ORIENTED X1-2, SLIGHTLY SLURRED SPEECH, ABLE TO MAKE NEEDS KNOWN. ON 2L OXYGEN VIA NASAL CANNULA O2 SAT 99%, NO SOB, SR HR 63. DENIES PAIN/DISCOMFORT. RIGHT WRIST g20 FLUSHES WELL, SITE CLEAR. LEFT HAND IV ACCESS, INFILTRATED. REMOVED. BED REST FOR NOW. CONDOM CATH, INCONTINENT BOWEL/BLADDER SAFETY MEASURE IMPLEMENT BED IN LOW POSITION AND LOCKED,HEAD OF THE BED ELEVATED,BED ALARM IS ON,CONTINUE TO MONITOR.
[2022-09-20] MEDS: PANTOPRAZOLE 40 MG TABLET.DR PO SCH (07:40)
[2022-09-20 08:00] VITALS: BP 135/75
--- NOTE | 2022-09-20 08:16 | NUR ---
MS RN NOTES DC TELEMETRY PER DR. RAO
[2022-09-20] MEDS: DOXYCYCLINE HYCLATE (100 MG) 100 MG TABLET PO SCH ×2 (08:20→21:14)
[2022-09-20] MEDS: CARVEDILOL 12.5 MG TABLET PO SCH ×2 (08:21→21:15)
[2022-09-20] MEDS: CEFEPIME 2 GM in IV D5W 100 ML IV SCH ×2 (08:22→21:15)
[2022-09-20] MEDS: DAKINS QUARTER STRENGTH (0.125%) 480 ML BOTTLE TOP SCH (08:30)
--- NOTE | 2022-09-20 09:30 | NUR ---
RN NOTES DUE MEDS GIVEN
[2022-09-20 16:00] VITALS: BP 135/78
--- NOTE | 2022-09-20 18:24 | NUR ---
SEWER MAINTENANCE SUPERVISOR CLOSING NOTE PATIENT IN BED RESTING ALERT ORIENTED X 2-3, SLIGHTLY SLURRED SPEECH, ABLE TO MAKE NEEDS KNOWN. ON ROOM AIR. O2 SAT 99%, NO SOB, SR HR 68. DENIES PAIN/DISCOMFORT. RIGHT WRIST SITE CLEAR. BED REST FOR NOW. CONDOM CATH, URINE OUTPUT 1150 ML, INCONTINENT BOWEL/BLADDER SAFETY MEASURE IMPLEMENT BED IN LOW POSITION AND LOCKED,HEAD OF THE BED ELEVATED,BED ALARM IS ON,ALL NEEDS MET. PM CARE DONE EARLIER. WILL ENDORSE TO NEXT SHIFT FOR RICKY.
--- NOTE | 2022-09-20 19:31 | NUR ---
MS RN OPENING NOTE RECEIVED PT AWAKE IN BED. A/O X2-3 AND ABLE TO MAKE NEEDS KNOWN. PT ON O2 @ 2 LPM VIA NC, TOLERATING WELL. NO SOB OR S/S OF RESPIRATORY DISTRESS. BREATHING EVEN AND UNLABORED. IV ACCESS R WRIST 20G, INTACT AND PATENT. SAFETY PRECAUTIONS IN PLACE. BED IN LOWEST LOCKED POSITION, HOB ELEVATED, SIDE RAILS UP X3, BED ALARM ON, AND CALL LIGHT AND TABLE WITHIN REACH. ALL NEEDS MET AT THIS TIME.
[2022-09-20 20:00] VITALS: BP 120/64
[2022-09-20] MEDS: LORAZEPAM INJ 2 MG/ML VIAL IV PRN (21:15)
--- NOTE | 2022-09-20 21:15 | NUR ---
RN NOTE PT STATED "I AM ABOUT TO HAVE A PANIC ATTACK AND I NEED MY ATIVAN. ADMINISTERED ATIVAN 1 MG FOR ANXIETY ORDERED. MADE COMFORTABLE IN BED. ALL NEEDS MET AT THIS TIME.
[2022-09-20] MEDS: ENOXAPARIN SODIUM 40 MG/0.4 ML DISP.SYRIN SQ SCH (21:16)
[2022-09-21] VITALS: BP 120/64
[2022-09-21 04:00] VITALS: BP 140/71
[2022-09-21] MEDS: BLOOD SUGAR DIAGNOSTIC 1 EACH STRIP IN SCH ×3 (05:57→18:00)
[2022-09-21 05:58] LABS: BASOPHILS % (AUTO) 0.2 % (0.0-2.0); HEMATOCRIT 33 % (39-51); HEMOGLOBIN 10.9 g/dL (13.5-17.5); LYMPHOCYTES # (AUTO) 1.2 K/uL (0.8-4.8); LYMPHOCYTES % (AUTO) 15.9 % (20.0-44.0); MEAN CORPUSCULAR HGB CONC 33 g/dl (31.0-36.0); MEAN CORPUSCULAR VOLUME 91 fL (80-96); MONOCYTES % (AUTO) 12.7 % (2.0-12.0); NEUTROPHILS # (AUTO) 5.5 K/uL (1.8-8.9); NEUTROPHILS % (AUTO) 70.2 % (43.0-81.0); PLATELET COUNT (AUTO) 101 K/uL (150-450); WHITE BLOOD COUNT (AUTO) 7.8 K/uL (4.3-11.0)
[2022-09-21] MEDS: INSULIN REGULAR, HUMAN 100 UNIT/ML 3 ML VIAL SQ PRN ×3 (05:59→19:13)
[2022-09-21 06:24] LABS: CALCIUM, SERUM 8.5 mg/dL (8.5-10.1); CREATININE 0.9 mg/dL (0.6-1.3); POTASSIUM 3.6 mmol/L (3.5-5.1)
--- NOTE | 2022-09-21 06:46 | NUR ---
MS RN CLOSING NOTE PT RESTING IN BED, VERBALLY RESPONSIVE. A/O X2-3 AND ABLE TO MAKE NEEDS KNOWN. PT ON O2 @ 2 LPM VIA NC, TOLERATING WELL. NO SOB OR S/S OF RESPIRATORY DISTRESS. BREATHING EVEN AND UNLABORED. IV ACCESS R WRIST 20G, INTACT AND PATENT. WOUND CARE DONE ORDERED. KEPT CLEAN AND DRY. ALL DUE MEDS GIVEN ORDERED. SAFETY PRECAUTIONS IN PLACE AT ALL TIMES. BED IN LOWEST LOCKED POSITION, HOB ELEVATED, SIDE RAILS UP X3, BED ALARM ON, AND CALL LIGHT AND TABLE WITHIN REACH. ALL NEEDS MET AT THIS TIME AND WILL ENDORSE TO ONCOMING NURSE FOR RICKY.
[2022-09-21] MEDS: PANTOPRAZOLE 40 MG TABLET.DR PO SCH (08:11)
[2022-09-21] MEDS: DAKINS QUARTER STRENGTH (0.125%) 480 ML BOTTLE TOP SCH (09:00)
[2022-09-21] MEDS: CEFEPIME 2 GM in IV D5W 100 ML IV SCH ×2 (09:07→20:46)
[2022-09-21] MEDS: CARVEDILOL 12.5 MG TABLET PO SCH ×2 (09:08→22:03)
[2022-09-21] MEDS: DOXYCYCLINE HYCLATE (100 MG) 100 MG TABLET PO SCH ×2 (09:09→20:46)
[2022-09-21] MEDS ORDERED: Blood Sugar Diagnostic IN (10:36)
[2022-09-21] MEDS ORDERED: CARV12.52 PO (10:36)
[2022-09-21] MEDS ORDERED: SODI473S8 TOP (10:36)
[2022-09-21] MEDS ORDERED: INSU100V28 SQ (10:36)
[2022-09-21] MEDS ORDERED: ENOX40DI SQ (10:36)
[2022-09-21] MEDS ORDERED: ACET325T53 PO (10:36)
[2022-09-21] MEDS ORDERED: Hydrocodone/Apap 5/325MG PO (10:36)
[2022-09-21] MEDS ORDERED: PANT40TA49 PO (10:36)
[2022-09-21] MEDS ORDERED: NUT.237L45 PO (10:36)
[2022-09-21] MEDS ORDERED: DOXY100T2 PO (10:36)
[2022-09-21] MEDS ORDERED: LEVO750T46 PO (10:42)
--- NOTE | 2022-09-21 11:03 | NUR ---
followup with cm dc still pending r/t snf issues with pt.
[2022-09-21 12:00] VITALS: BP 124/68
--- NOTE | 2022-09-21 12:41 | NUR ---
SS Consult: SS Consult requested for homelessness. The pt. is a 62-year-old White male pt. who was admitted to Med Surg for CHF, lower extremity cellulitis, alcohol withdrawal per EMR. The pt. is Alert & Oriented x 3 and makes good eye contact. The pt. appears unkempt. Pt. has dysphoric mood & flat affect. Pt. has loud speech and normal thought process. Pt. was calm & cooperative throughout interview. The pt. denies current SI/HI and denies current visual hallucinations. Pt. states he hears non-commanding voices. RUBIO explored pt.s mental health Hx. Pt. states he has been diagnosed with a paranoid Schizophrenia in the past and prescribed Invega, Fluvoxamine and Ativan which he is complaint with. RUBIO explored pt.s living situation, Pt. states he has been experiencing homelessness for some time now and has been staying with a friend. SW explored pt.s drug & ETOH use. Pt. states he drinks alcohol every 2-3 days and drinks liquor. SW used motivational interviewing provided brief drug use intervention and offered pt. addiction resources. Pt. accepted resources and refused referral for rehab. Per pt. he is ambulatory and independent with his ADLs. Pt. states he receives SSI. Plan: Upon discharge pt. is agreeable to SNF placement, see CM notes for details. RUBIO also provided pt. with resources for homelessness: shelters, hot meals, showers, mental health clinics etc. Pt. accepted resources and pt. signed homeless waiver which was placed in the pt.s chart. Winter Alf list : [facility]; AB Adult WSP site; JO[facility]O Adult WSP site; and [facility] Adult WSP site; instruction to call 211 for availability. Year-round shelters: [facility] [place] [address] [place], [place] [phone] ; [facility] [place] [address] [place] [address]; [facility] [id number] [facility] [address] Hygiene: [facility]: [address] [place] ; [facility] [address] [facility] ; [facility] [address] . Food Resources: [facility] at [facility]- [address] [place]; Meet Each Need with [facility]ign[facility] ([facility]) [address] [place]; [facility] [address] [facility]; [facility] [address] [facility] Mental Health resources provided: [facility] [address] [place], [place] [address] ; [facility] [address] [facility] [address], [place], [place] [id number] ; [facility] [address] [place] [place], [place] [phone] ; [facility] [place] [address] [employer], [place] [address] Healthcare Clinics: [facility] [address] [facility], [address] [place]. [place] ; [facility] [address] [place] [address]; [facility] [address] [facility]. [place] [phone] Counseling--Outpatient [facility] [address], [address] [place], [place] [address] (Specializes in in-depth psychotherapy for emotional distress: anxiety, depression, interpersonal conflicts, life transitions, childhood abuse) [facility] [address] [place] [address] (Assist with solving problem marital difficulties, separation & divorce, aging parents, & grief, chronic & terminal illness) [facility] [address] [place] [address] (Deal with loss & grief, anxiety, marital difficulties) Homebound/Mental Health Services [address] [facility], [address] [place], [place] [address] (Provide in-home mental services to people who are incapable of leaving their homes) [facility] [address] [place] [address] [facility] [address] [place] [address] PSYCHIATRIC OUTPATIENT SERVICES [facility] Partial Hospitalization and Intensive Outpatient Program (Managed Care and Apex Only)[address] [facility] [phone] [facility] Partial Hospitalization and Outpatient [id number] [place], [place] [phone] [facility] [place] [address] [place], [place] [phone] [facility] Partial Hospitalization and Outpatient [id number], [phone] Substance Abuse resources provided included: [facility] Substance Abuse Self-Helpline ([facility]) ; [facility] [address] [facility] [place] [address] ; [facility] [address] [facility] [address] ; [facility] Rehabilitation Program [address] [facility] [address] ; [facility] [place] [address] [facility] [phone] ; [facility] Treatment [facility] [address] [facility] [address] ; [facility] [address] [facility] [phone] ; [facility] Substance Abuse Helpline([facility]AS)-[facility] ; [facility] ; [facility] [place]; [facility] [place]; [facility] [place]; [facility] [address]; [facility] [place]; [facility] [place]; [facility] [place]; [facility], [facility]. Akua Kovacs; Alcoholics Anonymous -[facility]; Susan ; Marijuana Anonymous -[facility]; Narcotics Anonymous www.na.org;
[2022-09-21] MEDS: GLUCERNA SHAKE 237 ML CAN PO SCH (17:00)
[2022-09-21] MEDS: LORAZEPAM INJ 2 MG/ML VIAL IV PRN (17:06)
--- NOTE | 2022-09-21 19:30 | NUR ---
MS RN OPENING NOTES RECEIVED PATIENT IN BED WATCHING TV AWAKE, ALERT AND ORIENTED. A/O X 3-4. NO S/S OF PAIN AT THIS TIME. ON 2L OXYGEN VIA NC, NO DISTRESS OR SHORTNESS OF BREATH NOTED. IV ACCESS R WRIST #20G, SL; INTACT AND PATENT AND FLUSHING WELL. FALL AND SAFETY MEASURES IN PLACE. BED ALARM ON, BED IN LOW AND LOCK POSITION. CALL LIGHT AND TRAY WITHIN EASY REACH. SIDE RAILS UP X 2. WILL CONTINUE WITH THE PLAN OF CARE.
[2022-09-21 20:00] VITALS: BP 138/71
[2022-09-21] MEDS: ENOXAPARIN SODIUM 40 MG/0.4 ML DISP.SYRIN SQ SCH (20:49)
[2022-09-22] MEDS: BLOOD SUGAR DIAGNOSTIC 1 EACH STRIP IN SCH ×5 (00:24→23:38)
[2022-09-22] MEDS: INSULIN REGULAR, HUMAN 100 UNIT/ML 3 ML VIAL SQ PRN ×5 (00:39→23:42)
[2022-09-22 04:00] VITALS: BP 138/71
--- NOTE | 2022-09-22 06:55 | NUR ---
RN NOTES DONE WOUND CARE. CLEANSED USING DAKINS. APPLIED MOISTENED KERLIX WITH DAKINS THEN SECURE WITH OPTIFOAM AT THE THIGH PART. APPLIED MOISTENED KERLIX WITH DAKINS THEN SECURE ELBOW WITH KERLIX ABD PAD. KEPT DRY AND CLEAN. WILL ENDORSE TO THE NEXT SHIFT REGARDING WOUND CARE.
[2022-09-22] MEDS: PANTOPRAZOLE 40 MG TABLET.DR PO SCH (07:34)
[2022-09-22] MEDS: GLUCERNA SHAKE 237 ML CAN PO SCH ×2 (07:34→16:05)
--- NOTE | 2022-09-22 07:40 | NUR ---
MS RN CLOSING NOTES PATIENT IN BED SLEEPING COMFORTABLY. EASILY AWAKEN BY VERBAL STIMULI. A/O X 3-4. NO S/S OF PAIN AT THIS TIME. ON 2L OXYGEN VIA NC, NO DISTRESS OR SHORTNESS OF BREATH NOTED. IV ACCESS R WRIST #20G, SL; INTACT AND PATENT AND FLUSHING WELL. ALL DUE MEDS AND IV GIVEN. WOUND CARE DONE. FALL AND SAFETY MEASURES IN PLACE. BED ALARM ON, BED IN LOW AND LOCK POSITION. CALL LIGHT AND TRAY WITHIN EASY REACH. SIDE RAILS UP X 2. WILL ENDORSE TO THE NEXT SHIFT.
[2022-09-22] MEDS: CEFEPIME 2 GM in IV D5W 100 ML IV SCH ×2 (08:03→20:59)
[2022-09-22] MEDS: CARVEDILOL 12.5 MG TABLET PO SCH ×2 (08:07→20:59)
[2022-09-22] MEDS: DOXYCYCLINE HYCLATE (100 MG) 100 MG TABLET PO SCH ×2 (08:07→20:59)
[2022-09-22] MEDS: DAKINS QUARTER STRENGTH (0.125%) 480 ML BOTTLE TOP SCH (08:08)
--- NOTE | 2022-09-22 15:44 | NUR ---
COVID TEST TAKEN PER ORDER,SENT TO LAB
[2022-09-22 16:00] VITALS: BP 140/76
--- NOTE | 2022-09-22 19:01 | NUR ---
CLOSING NOTE PT RESTING IN BED, VERBALLY RESPONSIVE. A/O X2-3 AND ABLE TO MAKE NEEDS KNOWN. PT ON O2 @ 2 LPM VIA NC, TOLERATING WELL. NO SOB OR S/S OF RESPIRATORY DISTRESS. BREATHING EVEN AND UNLABORED. IV ACCESS R WRIST 20G, INTACT AND PATENT. WOUND CARE DONE ORDERED. KEPT CLEAN AND DRY. ALL DUE MEDS GIVEN ORDERED. SAFETY PRECAUTIONS IN PLACE AT ALL TIMES. BED IN LOWEST LOCKED POSITION, HOB ELEVATED, SIDE RAILS UP X3, BED ALARM ON, AND CALL LIGHT AND TABLE WITHIN REACH. ALL NEEDS MET AT THIS TIME AND WILL ENDORSE TO NIGHT NURSE
--- NOTE | 2022-09-22 19:15 | NUR ---
RN NOTE RECEIVED PT IN BED, ALERT, AWAKE, ORIENTED X3, VERBALLY RESPONSIVE. PT DENIES PAIN/DISCOMFORT AT THIS TIME. PT ON RA, NO SOB, NO ACUTE RESP DISTRESS NOTED. IV ACCESS ON R WRIST 20G, SL. PATENT, FLUSHING WELL, NO S/SX OF INFX/INFILTRATION NOTED. SAFETY PRECAUTIONS IMPLEMENTED: BED LOCKED AND IN LOW POSITION, HOB ELEVATED. WILL CONT POC.
[2022-09-22] MEDS: LORAZEPAM INJ 2 MG/ML VIAL IV PRN (20:56)
[2022-09-22] MEDS: ENOXAPARIN SODIUM 40 MG/0.4 ML DISP.SYRIN SQ SCH (20:59)
[2022-09-23] VITALS: BP 143/72
[2022-09-23] MEDS: INSULIN REGULAR, HUMAN 100 UNIT/ML 3 ML VIAL SQ PRN ×3 (05:42→17:09)
[2022-09-23] MEDS: BLOOD SUGAR DIAGNOSTIC 1 EACH STRIP IN SCH ×3 (05:42→17:08)
--- NOTE | 2022-09-23 06:13 | NUR ---
RN NOTE PT REMAINS IN STABLE CONDITION. NO SIGNIFICANT CHANGES NOTED. REMAINS ON ROOM AIR, O2 SAT 99%, NO SOB, NO ACUTE RESP DISTRESS NOTED. ALL NEEDS ATTENDED. KEPT PT CLEAN AND DRY. CALL LIGHT WITHIN EASY REACH. SAFETY PRECAUTIONS IMPLEMENTED.
[2022-09-23] MEDS: LORAZEPAM INJ 2 MG/ML VIAL IV PRN ×2 (06:50→20:35)
[2022-09-23] MEDS: PANTOPRAZOLE 40 MG TABLET.DR PO SCH (07:39)
[2022-09-23] MEDS: GLUCERNA SHAKE 237 ML CAN PO SCH ×2 (07:39→16:44)
[2022-09-23] MEDS: DOXYCYCLINE HYCLATE (100 MG) 100 MG TABLET PO SCH ×2 (07:53→20:35)
[2022-09-23] MEDS: CARVEDILOL 12.5 MG TABLET PO SCH ×2 (07:53→20:35)
[2022-09-23 08:00] VITALS: BP 141/67
[2022-09-23] MEDS: CEFEPIME 2 GM in IV D5W 100 ML IV SCH ×2 (08:22→20:34)
[2022-09-23] MEDS: DAKINS QUARTER STRENGTH (0.125%) 480 ML BOTTLE TOP SCH (08:31)
[2022-09-23 16:00] VITALS: BP 141/72
--- NOTE | 2022-09-23 19:45 | NUR ---
MS RN OPENING NOTE RECEIVED PT IN BED, A/O X 4 AND ABLE TO MAKE NEEDS KNOWN. PT ON ROOM AIR, NO SOB OR S/S OF RESPIRATORY DISTRESS. BREATHING EVEN AND UNLABORED. IV ACCESS R WRIST 20G, INTACT AND PATENT. SAFETY PRECAUTIONS IN PLACE: BED LOCKED AND IN LOWEST POSITION, HOB ELEVATED, SIDE RAILS UP X3, BED ALARM ON, CALL LIGHT WITHIN REACH.
[2022-09-23] MEDS: ENOXAPARIN SODIUM 40 MG/0.4 ML DISP.SYRIN SQ SCH (20:39)
--- NOTE | 2022-09-23 20:40 | NUR ---
MS RN NOTE ADMINISTERED ATIVAN 1 MG FOR ANXIETY PER PT REQUEST. MADE COMFORTABLE IN BED. ALL NEEDS MET AT THIS TIME.
[2022-09-24] VITALS: BP 145/64
[2022-09-24] MEDS: BLOOD SUGAR DIAGNOSTIC 1 EACH STRIP IN SCH ×4 (00:09→17:19)
[2022-09-24] MEDS: INSULIN REGULAR, HUMAN 100 UNIT/ML 3 ML VIAL SQ PRN ×4 (00:13→17:19)
--- NOTE | 2022-09-24 06:27 | NUR ---
MS RN CLOSING NOTE PATIENT IN BED, ASLEEP, BUT EASY TO AROUSE, A/O X 4. PT ON ROOM AIR, TOLERATING WELL. NO SOB/RESPIRATORY DISTRESS NOTED. BREATHING EVEN AND UNLABORED. IV ACCESS R WRIST 20G S/L, INTACT AND PATENT. SKIN IS WARM AND DRY. VSS. ALL DUE MEDS GIVEN AND NEEDS ATTENDED. SAFETY MEASURES MAINTAINED: BED LOCKED AND IN LOWEST POSITION, SIDE RAILS UP X3, BED ALARM ON, CALL LIGHT WITHIN REACH. WILL ENDORSE TO ONCOMING NURSE FOR RICKY.
[2022-09-24] MEDS: GLUCERNA SHAKE 237 ML CAN PO SCH ×2 (07:30→17:19)
--- NOTE | 2022-09-24 07:30 | NUR ---
RN NOTE PT RECEIVED IN BED, SLEEPING. PT ON RA WITH NO SIGNS OF LABORED BREATHING. A&OX4, PT IN AGREEMENT WITH POC. RIGHT WRIST 20G IN PLACE, PATENT AND FLUSHING. BED LOCKED AND IN LOWEST POSITION, CALL LIGHT WITHIN REACH, 3 SIDE RAILS UP.
[2022-09-24 08:00] VITALS: BP 134/63
[2022-09-24] MEDS: PANTOPRAZOLE 40 MG TABLET.DR PO SCH (08:07)
[2022-09-24] MEDS: DOXYCYCLINE HYCLATE (100 MG) 100 MG TABLET PO SCH ×2 (08:08→21:09)
[2022-09-24] MEDS: CEFEPIME 2 GM in IV D5W 100 ML IV SCH ×2 (08:08→21:11)
[2022-09-24] MEDS: CARVEDILOL 12.5 MG TABLET PO SCH ×2 (08:08→21:11)
[2022-09-24] MEDS: DAKINS QUARTER STRENGTH (0.125%) 480 ML BOTTLE TOP SCH (08:18)
[2022-09-24 16:00] VITALS: BP 132/75
[2022-09-24 20:00] VITALS: BP 124/71
[2022-09-24] MEDS: LORAZEPAM INJ 2 MG/ML VIAL IV PRN (21:11)
[2022-09-24] MEDS: ENOXAPARIN SODIUM 40 MG/0.4 ML DISP.SYRIN SQ SCH (21:19)
[2022-09-25] MEDS: BLOOD SUGAR DIAGNOSTIC 1 EACH STRIP IN SCH ×5 (00:10→23:22)
[2022-09-25] MEDS: INSULIN REGULAR, HUMAN 100 UNIT/ML 3 ML VIAL SQ PRN ×4 (00:26→23:26)
[2022-09-25 04:00] VITALS: BP 118/68
--- NOTE | 2022-09-25 06:30 | NUR ---
PT.SLEEPING MOST OF NIGHT, DENIES ANY PAIN, ASKING FOR JUICES AND SODA, EXPLAINED ABOUT HIS DX: CHF AND DM, NO OTHER PROBLEMS OR ANY NEW SKIN ISSUES NOTED.
[2022-09-25 07:19] LABS: BASOPHILS % (AUTO) 0.4 % (0.0-2.0); EOSINOPHILS % (AUTO) 1.2 % (0.0-6.0); HEMATOCRIT 39 % (39-51); LYMPHOCYTES # (AUTO) 1.4 K/uL (0.8-4.8); LYMPHOCYTES % (AUTO) 16.1 % (20.0-44.0); MEAN CORPUSCULAR HGB CONC 34 g/dl (31.0-36.0); MEAN CORPUSCULAR VOLUME 90 fL (80-96); MONOCYTES # (AUTO) 0.9 K/uL (0.1-1.30); MONOCYTES % (AUTO) 10.8 % (2.0-12.0); NEUTROPHILS # (AUTO) 6.2 K/uL (1.8-8.9); NEUTROPHILS % (AUTO) 71.5 % (43.0-81.0); PLATELET COUNT (AUTO) 392 K/uL (150-450); RED BLOOD CELL COUNT(AUTO) 4.32 MIL/uL (4.5-6.0); WHITE BLOOD COUNT (AUTO) 8.7 K/uL (4.3-11.0)
[2022-09-25 07:28] LABS: CREATININE 0.9 mg/dL (0.6-1.3); POTASSIUM 4.2 mmol/L (3.5-5.1)
--- NOTE | 2022-09-25 07:28 | NUR ---
SHIFT REPORT REPORT GIVEN TO ARMANI CHART REVIEWED YES SBAR GIVEN YES
--- NOTE | 2022-09-25 07:30 | NUR ---
RN note Received patient in bed. Patient is asleep without active complaint. Right wrist IV site is dry, intact and patent. Call garcia is placed within reach. Bed is locked and placed in the lowest position. All safety measures have been implemented. Will continue monitoring and care.
[2022-09-25 08:00] VITALS: BP 134/71
[2022-09-25] MEDS: GLUCERNA SHAKE 237 ML CAN PO SCH (08:00)
[2022-09-25] MEDS ORDERED: LIDOCAINE 1%-EPI 1:100,000 20 ML VIAL TP ONE (08:00)
[2022-09-25] MEDS: CARVEDILOL 12.5 MG TABLET PO SCH ×2 (09:00→21:11)
[2022-09-25] MEDS: PANTOPRAZOLE 40 MG TABLET.DR PO SCH (09:25)
[2022-09-25] MEDS: DOXYCYCLINE HYCLATE (100 MG) 100 MG TABLET PO SCH ×2 (09:26→21:12)
[2022-09-25] MEDS: CEFEPIME 2 GM in IV D5W 100 ML IV SCH ×2 (09:27→21:13)
[2022-09-25] MEDS: DAKINS QUARTER STRENGTH (0.125%) 480 ML BOTTLE TOP SCH (09:27)
--- NOTE | 2022-09-25 10:00 | NUR ---
RN note Assisted patient to go to the bathroom with a walker. Steady gait is observed. Standby assistance only.
[2022-09-25 16:00] VITALS: BP 138/71
[2022-09-25 20:00] VITALS: BP 143/64
--- NOTE | 2022-09-25 21:00 | NUR ---
PT. UP TO BATHROOM WHILE NURSE IN ROOM, GAIT STEADY, DID NOT USE WALKER.
[2022-09-25] MEDS: LORAZEPAM INJ 2 MG/ML VIAL IV PRN (21:13)
[2022-09-25] MEDS: ENOXAPARIN SODIUM 40 MG/0.4 ML DISP.SYRIN SQ SCH (21:17)
--- NOTE | 2022-09-26 01:30 | NUR ---
PT. AWAKE AND REQUESTED JUICE TO DRINK, EXPLAINED THAT SUGAR WILL CAUSE BLOOD SUGAR TO GO UP AND WATER IS BETTER FOR HIM, PT. AGREED AND HAD COLD WATER
[2022-09-26] MEDS: INSULIN REGULAR, HUMAN 100 UNIT/ML 3 ML VIAL SQ PRN ×2 (06:17→11:19)
[2022-09-26] MEDS: BLOOD SUGAR DIAGNOSTIC 1 EACH STRIP IN SCH ×2 (06:17→11:13)
--- NOTE | 2022-09-26 07:10 | NUR ---
PAPER CARRIER OPENING NOTES Received pt awake in bed AOx4. no complaints of pain or discomfort at this time. Pt is currently on RA and tolerating it well. IV access on right wrist 20G patent and intact. HOB elevated to 30-45 degrees. Siderails up at all times x2. Call light within reach. Will continue to monitor.
--- NOTE | 2022-09-26 07:20 | NUR ---
SHIFT REPORT REPORT GIVEN TO MIGUEL CHART REVIEWED YES SBAR GIVEN YES
[2022-09-26 07:33] LABS: BASOPHILS % (AUTO) 0.3 % (0.0-2.0); HEMATOCRIT 38 % (39-51); HEMOGLOBIN 12.8 g/dL (13.5-17.5); LYMPHOCYTES # (AUTO) 1.5 K/uL (0.8-4.8); LYMPHOCYTES % (AUTO) 17.8 % (20.0-44.0); MEAN CORPUSCULAR HGB CONC 34 g/dl (31.0-36.0); MEAN CORPUSCULAR VOLUME 89 fL (80-96); MONOCYTES # (AUTO) 0.9 K/uL (0.1-1.30); NEUTROPHILS # (AUTO) 6.1 K/uL (1.8-8.9); NEUTROPHILS % (AUTO) 70.9 % (43.0-81.0); PLATELET COUNT (AUTO) 488 K/uL (150-450); RED BLOOD CELL COUNT(AUTO) 4.26 MIL/uL (4.5-6.0); WHITE BLOOD COUNT (AUTO) 8.7 K/uL (4.3-11.0)
[2022-09-26 07:40] LABS: CALCIUM, SERUM 8.9 mg/dL (8.5-10.1); CREATININE 0.9 mg/dL (0.6-1.3); POTASSIUM 4.1 mmol/L (3.5-5.1)
[2022-09-26] MEDS: DOXYCYCLINE HYCLATE (100 MG) 100 MG TABLET PO SCH (08:21)
[2022-09-26 08:22] VITALS: BP 122/68
[2022-09-26] MEDS: CARVEDILOL 12.5 MG TABLET PO SCH (08:22)
[2022-09-26] MEDS: CEFEPIME 2 GM in IV D5W 100 ML IV SCH (08:23)
[2022-09-26] MEDS: PANTOPRAZOLE 40 MG TABLET.DR PO SCH (08:23)
[2022-09-26] MEDS: DAKINS QUARTER STRENGTH (0.125%) 480 ML BOTTLE TOP SCH (09:44)
[2022-09-26] MEDS ORDERED: DOXY100T2 PO (12:13)
[2022-09-26] MEDS ORDERED: LEVO750T46 PO (12:13)
[2022-09-26] MEDS ORDERED: CEFE1FRO IV (12:19)
--- NOTE | 2022-09-26 13:10 | NUR ---
FOUNTAIN JERK NOTES Pt to be discharged to [facility]. Report given to RUEL Briggs.
--- NOTE | 2022-09-26 14:35 | NUR ---
AIR CHIEF MARSHAL NOTES [facility] kept in d/t pt continuing ATB. Belongings brought by pt. [facility]red [facility] safely.
== END 2022-09-26 14:53 | DRG 720 ==
LOC: ER 12:43 → TELE1 17:55 → MEDSG1 09-20 08:40
PROVIDERS: ADMIT Student in an Organized Health Care Education/Training Program; ATTEND Nurse Practitioner Acute Care
DX: A41.9 Sepsis, unspecified organism (principal); N17.0 Acute kidney failure with tubular necrosis; E87.20 Acidosis, unspecified; E87.1 Hypo-osmolality and hyponatremia; F20.0 Paranoid schizophrenia; D69.6 Thrombocytopenia, unspecified; F41.9 Anxiety disorder, unspecified; L03.115 Cellulitis of right lower limb; L03.116 Cellulitis of left lower limb; I25.10 Atherosclerotic heart disease of native coronary artery without angina pectoris; Z20.822 Contact with and (suspected) exposure to COVID-19; E78.5 Hyperlipidemia, unspecified; Z59.00 Homelessness unspecified; Z79.84 Long term (current) use of oral hypoglycemic drugs; Z79.899 Other long term (current) drug therapy; F10.139 Alcohol abuse with withdrawal, unspecified; Y90.6 Blood alcohol level of 120-199 mg/100 ml; G89.4 Chronic pain syndrome; Z72.0 Tobacco use; E11.9 Type 2 diabetes mellitus without complications; G47.33 Obstructive sleep apnea (adult) (pediatric); F19.10 Other psychoactive substance abuse, uncomplicated; I10 Essential (primary) hypertension; E83.42 Hypomagnesemia; E87.6 Hypokalemia; J98.11 Atelectasis; Z91.14 Patient's other noncompliance with medication regimen; S41.009A Unspecified open wound of unspecified shoulder, initial encounter; S71.109A Unspecified open wound, unspecified thigh, initial encounter; X58.XXXA Exposure to other specified factors, initial encounter; Y92.9 Unspecified place or not applicable; S51.002A Unspecified open wound of left elbow, initial encounter; S71.009A Unspecified open wound, unspecified hip, initial encounter; R06.89 Other abnormalities of breathing
CPT/HCPCS: 36415; 36600; 71045-TC; 76770-TC; 80048-TC; 80053-TC; 80076-TC; 80202-TC; 82803-TC; 82962-TC; 83605-TC; 83735-TC; 83880; 84100-TC; 84484-TC; 85025-TC; 86704; 86706; 86803; 87040-TC; 87081-TC; 87340; 87806; 92526; 92611-TC; 93307-TC; 93970-TC; 97112-TC; 97116-TC; 97530-TC; A4223; A4349; A6253; A6403; C9803; G0378; G0480; J0692; J1650; J1815; J1940; J2060; J2543; J3370; J3475; J3490; J7030; J7050; J7060; U0003